=== PATIENT | male | born 1970 | race Caucasian/White ===

== ENCOUNTER 2017-11-30 18:45 | Emergency (ER) | payer OTHER, SELFPAY ==
[2017-11-30] MEDS: zolPIDEM TARTRATE 5 MG TAB PO ×2 (21:00)
== END 2017-11-30 21:02 | disposition home or self-care (01) ==
LOC: M ED 18:45
DX: Z76.0 Encounter for issue of repeat prescription (principal); G47.00 Insomnia, unspecified; Z79.899 Other long term (current) drug therapy; Z87.891 Personal history of nicotine dependence
CPT/HCPCS: 99283

== ENCOUNTER → 2019-12-29 | Outpatient (CLI) | payer BC, OTHER ==
[~2019-12-29] MED LIST: ZOLP10TA2 PO
== END ==
LOC: M LABSMTC 10:31
PROVIDERS: ATTEND Family Medicine
DX: Z11.59 Encounter for screening for other viral diseases (principal); Z20.828 Contact with and (suspected) exposure to other viral communicable diseases

== ENCOUNTER 2020-11-07 16:52 | Emergency (ER) | payer BC, OTHER ==
[~2020-11-07] VITALS: Ht 175.3 cm; Wt 111.4 kg
[~2020-11-07 16:52] MED LIST changes: +RALTEGRAVIR 400 MG TAB (ISENTRESS) PO SCH; +TRUVADA 200MG/300MG TABLET PO SCH
--- OUTSIDE RECORDS SUMMARY | 2020-11-07 16:57 | CCD ---
Author Author [facility] Address Unknown Phone Unavailable Care Team Providers Care Rn Testing Name Role Phone Chester Dewitt MD Unavailable Unavailable Chester Dewitt MD Unavailable Unavailable Chester Dewitt MD Unavailable Unavailable Chester Dewitt MD Unavailable Unavailable Chester Dewitt MD Unavailable Unavailable Chester Dewitt MD Unavailable Unavailable Chester Dewitt MD Unavailable Unavailable Chester Dewitt MD Unavailable Unavailable Chester Dewitt MD Unavailable Unavailable Chester Dewitt MD Unavailable Unavailable Chester Dewitt MD Unavailable Unavailable Chester Dewitt MD Unavailable Unavailable Chester Dewitt MD Unavailable Unavailable Chester Dewitt MD Unavailable Unavailable Chester Dewitt MD Unavailable Unavailable Chester Dewitt MD Unavailable Unavailable Chester Dewitt MD Unavailable Unavailable hCester Dewitt MD Unavailable Unavailable Chester Dewitt MD Unavailable Unavailable Chester Dewitt MD Unavailable Unavailable Chester Dewitt MD Unavailable Unavailable Chester Dewitt MD Unavailable Unavailable Chester Dewitt MD Unavailable Unavailable Chester Dewitt MD Unavailable Unavailable Chester Dewitt MD Unavailable Unavailable LyndaChester villeda MD Unavailable Unavailable LyndakerChester MD Unavailable Unavailable LyndaChester villeda MD Unavailable Unavailable LyndakerChester MD Unavailable Unavailable LyndakerChester MD Unavailable Unavailable LyndakerChester MD Unavailable Unavailable LyndaChester villeda MD Unavailable Unavailable LyndaChester villeda MD Unavailable Unavailable LyndaChester villeda MD Unavailable Unavailable LyndaChester villeda MD Unavailable Unavailable LyndakerChester MD Unavailable Unavailable LyndakerChester MD Unavailable Unavailable LyndaChester villeda MD Unavailable Unavailable LyndaChester villeda MD Unavailable Unavailable LyndaChester villeda MD Unavailable Unavailable LyndaChester villeda MD Unavailable Unavailable LyndaChester villeda MD Unavailable Unavailable LyndaChester villeda MD Unavailable Unavailable LyndaChester villeda MD Unavailable Unavailable LyndaChester villeda MD Unavailable Unavailable LyndaChester villeda MD Unavailable Unavailable LyndaChester villeda MD Unavailable Unavailable LyndaChester villeda MD Unavailable Unavailable LyndaChester villeda MD Unavailable Unavailable LyndaChester villeda MD Unavailable Unavailable LyndaChester villeda MD Unavailable Unavailable LyndaChester villeda MD Unavailable Unavailable LyndaChester villeda MD Unavailable Unavailable LyndaChester villeda MD Unavailable Unavailable LyndaChester villeda MD Unavailable Unavailable LyndaChester villeda MD Unavailable Unavailable LyndaChester villeda MD Unavailable Unavailable LyndaChester villeda MD Unavailable Unavailable LynChester roberts MD Unavailable Unavailable LynChester roberts MD Unavailable Unavailable LyndaChester villeda MD Unavailable Unavailable LyndaChester villeda MD Unavailable Unavailable LyndaChester villeda MD Unavailable Unavailable LyndaChester villeda MD Unavailable Unavailable LynChester roberts MD Unavailable Unavailable LynChester roberts MD Unavailable Unavailable LyndaChester villeda MD Unavailable Unavailable LyndaChester villeda MD Unavailable Unavailable LyndaChester villeda MD Unavailable Unavailable LyndaChester villeda MD Unavailable Unavailable LyndaChester villeda MD Unavailable Unavailable LyndaChester villeda MD Unavailable Unavailable LyndaChester villeda MD Unavailable Unavailable LyndaChester villeda MD Unavailable Unavailable LyndaChester villeda MD Unavailable Unavailable Lyndaker, Chester Boyd MD Unavailable Unavailable Lyndaker, Chester Boyd MD Unavailable Unavailable Lyndaker, Chester Boyd MD Unavailable Unavailable Lyndaker, Chester Boyd MD Unavailable Unavailable Lyndaker, Chester Boyd MD Unavailable Unavailable Lyndaker, Chester Boyd MD Unavailable Unavailable Lyndaker, Chester Boyd MD Unavailable Unavailable Lyndaker, Chester Boyd MD Unavailable Unavailable Lyndaker, Chester Boyd MD Unavailable Unavailable Lyndaker, Chester Boyd MD Unavailable Unavailable Lyndaker, Chester Boyd MD Unavailable Unavailable Lyndaker, Chester Boyd MD Unavailable Unavailable Lyndaker, Chester Boyd MD Unavailable Unavailable Lyndaker, Chester Boyd MD Unavailable Unavailable Lyndaker, Chester Boyd MD Unavailable Unavailable Lyndaker, Chester Boyd MD Unavailable Unavailable Chichi, [id number] MD Mack JOHNSON Unavailable Unavailable Chichi, [id number] MD Mack JOHNSON Unavailable Unavailable Chichi, [id number] MD Mack JOHNSON Unavailable Unavailable Brijesh, A Luly BATCH MIXER OPERATOR Unavailable Unavailable Brijesh, A Luly BATCH MIXER OPERATOR Unavailable Unavailable Brijesh, A Luly BATCH MIXER OPERATOR Unavailable Unavailable Brijesh, A Luly BATCH MIXER OPERATOR Unavailable Unavailable Brijesh, A Luly BATCH MIXER OPERATOR Unavailable Unavailable Brijesh, A Luly BATCH MIXER OPERATOR Unavailable Unavailable Brijesh, A Luly BATCH MIXER OPERATOR Unavailable Unavailable Brijesh, A Luly BATCH MIXER OPERATOR Unavailable Unavailable Brijesh, A Luly BATCH MIXER OPERATOR Unavailable Unavailable Brijesh, A Luly BATCH MIXER OPERATOR Unavailable Unavailable Brijesh, A Luly BATCH MIXER OPERATOR Unavailable Unavailable Brijesh, A Luly BATCH MIXER OPERATOR Unavailable Unavailable Brijesh, A Luly BATCH MIXER OPERATOR Unavailable Unavailable Brijesh, A Luly BATCH MIXER OPERATOR Unavailable Unavailable Brijesh, A Luly BATCH MIXER OPERATOR Unavailable Unavailable Brijesh, A Luly BATCH MIXER OPERATOR Unavailable Unavailable Brijesh, A Luly BATCH MIXER OPERATOR Unavailable Unavailable Brijesh, A Luly BATCH MIXER OPERATOR Unavailable Unavailable Brijesh, A Luly BATCH MIXER OPERATOR Unavailable Unavailable Brijesh, A Luly BATCH MIXER OPERATOR Unavailable Unavailable Brijesh, A Luly BATCH MIXER OPERATOR Unavailable Unavailable Brijesh, A Luly BATCH MIXER OPERATOR Unavailable Unavailable Brijesh, A Luly BATCH MIXER OPERATOR Unavailable Unavailable Brijesh, A Luly BATCH MIXER OPERATOR Unavailable Unavailable Brijesh, A Luly BATCH MIXER OPERATOR Unavailable Unavailable Brijesh, A Luly BATCH MIXER OPERATOR Unavailable Unavailable Brijesh, A Luly BATCH MIXER OPERATOR Unavailable Unavailable Brijesh, A Luly BATCH MIXER OPERATOR Unavailable Unavailable Brijesh, A Luly BATCH MIXER OPERATOR Unavailable Unavailable Brijesh, A Luly BATCH MIXER OPERATOR Unavailable Unavailable Brijesh, A Luly BATCH MIXER OPERATOR Unavailable Unavailable Brijesh, A Luly BATCH MIXER OPERATOR Unavailable Unavailable Brijesh, A Luly BATCH MIXER OPERATOR Unavailable Unavailable Brijesh, A Luly BATCH MIXER OPERATOR Unavailable Unavailable Brijesh, A Luly BATCH MIXER OPERATOR Unavailable Unavailable Brijesh, A Luly BATCH MIXER OPERATOR Unavailable Unavailable Brijesh, A Luly BATCH MIXER OPERATOR Unavailable Unavailable Brijesh, A Luly BATCH MIXER OPERATOR Unavailable Unavailable Brijesh, A Luly BATCH MIXER OPERATOR Unavailable Unavailable Brijesh, A Luly BATCH MIXER OPERATOR Unavailable Unavailable Brijesh, A Luly BATCH MIXER OPERATOR Unavailable Unavailable Brijesh, A Luly BATCH MIXER OPERATOR Unavailable Unavailable Brijesh, A Luly BATCH MIXER OPERATOR Unavailable Unavailable Brijesh, A Luly BATCH MIXER OPERATOR Unavailable Unavailable Brijesh, A Luly BATCH MIXER OPERATOR Unavailable Unavailable Brijesh, A Luly BATCH MIXER OPERATOR Unavailable Unavailable Brijesh, A Luly BATCH MIXER OPERATOR Unavailable Unavailable Brijesh, A Luly BATCH MIXER OPERATOR Unavailable Unavailable Brijesh, A Luly BATCH MIXER OPERATOR Unavailable Unavailable Brijesh, A Luly BATCH MIXER OPERATOR Unavailable Unavailable Brijesh, A Luly BATCH MIXER OPERATOR Unavailable Unavailable Brijesh, A Luly BATCH MIXER OPERATOR Unavailable Unavailable Brijesh, A Luly BATCH MIXER OPERATOR Unavailable Unavailable Brijesh, A Luly BATCH MIXER OPERATOR Unavailable Unavailable Brijesh, A Luly BATCH MIXER OPERATOR Unavailable Unavailable Brijesh, A Luly BATCH MIXER OPERATOR Unavailable Unavailable Brijesh, A Luly BATCH MIXER OPERATOR Unavailable Unavailable Brijesh, A Luly BATCH MIXER OPERATOR Unavailable Unavailable Brijesh, A Luly BATCH MIXER OPERATOR Unavailable Unavailable Brijesh, A Luly BATCH MIXER OPERATOR Unavailable Unavailable Brijesh, A Luly BATCH MIXER OPERATOR Unavailable Unavailable Brijesh, A Luly BATCH MIXER OPERATOR Unavailable Unavailable Brijesh, A Luly BATCH MIXER OPERATOR Unavailable Unavailable Brijesh, A Luly BATCH MIXER OPERATOR Unavailable Unavailable Brijesh, A Luly BATCH MIXER OPERATOR Unavailable Unavailable Brijesh, A Luly BATCH MIXER OPERATOR Unavailable Unavailable Brijesh, A Luly BATCH MIXER OPERATOR Unavailable Unavailable Brijesh, A Luly BATCH MIXER OPERATOR Unavailable Unavailable Brijesh, A Luly BATCH MIXER OPERATOR Unavailable Unavailable Brijesh, A Luly BATCH MIXER OPERATOR Unavailable Unavailable Brijesh, A Luly BATCH MIXER OPERATOR Unavailable Unavailable Brijesh, A Luly BATCH MIXER OPERATOR Unavailable Unavailable Brijesh, A Luly BATCH MIXER OPERATOR Unavailable Unavailable Brijesh, A Luly BATCH MIXER OPERATOR Unavailable Unavailable Brijesh, A Luly BATCH MIXER OPERATOR Unavailable Unavailable Brijesh, A Luly BATCH MIXER OPERATOR Unavailable Unavailable Brijesh, A Luly BATCH MIXER OPERATOR Unavailable Unavailable Brijesh, A Luly BATCH MIXER OPERATOR Unavailable Unavailable Brijesh, A Luly BATCH MIXER OPERATOR Unavailable Unavailable Brijesh, A Luly BATCH MIXER OPERATOR Unavailable Unavailable Brijesh, A Luly BATCH MIXER OPERATOR Unavailable Unavailable Brijesh, A Luly BATCH MIXER OPERATOR Unavailable Unavailable Brijesh, A Luly BATCH MIXER OPERATOR Unavailable Unavailable Brijesh, A Luly BATCH MIXER OPERATOR Unavailable Unavailable Brijesh, A Luly BATCH MIXER OPERATOR Unavailable Unavailable Brijesh, A Luly BATCH MIXER OPERATOR Unavailable Unavailable Brijesh, A Luly BATCH MIXER OPERATOR Unavailable Unavailable Brijesh, A Luly BATCH MIXER OPERATOR Unavailable Unavailable Marjorie, Chau Unavailable Unavailable Marjorie, Chau Unavailable Unavailable Marjorie, Chau Unavailable Unavailable Marjorie, Chau Unavailable Unavailable ESEMUEDE, Perez LACY MD Unavailable Unavailable ESEMUEDE, Perez LACY MD Unavailable Unavailable ESEMUEDE, Perez LACY MD Unavailable Unavailable Re-disclosure Warning The records that you are about to access may contain information from federally-assisted alcohol or drug abuse programs. If such information is present, then the following federally mandated warning applies: This information has been disclosed to you from records protected by federal confidentiality rules (42 CFR part 2). The federal rules prohibit you from making any further disclosure of this information unless further disclosure is expressly permitted by the written consent of the person to whom it pertains or as otherwise permitted by 42 CFR part 2. A general authorization for the release of medical or other information is NOT sufficient for this purpose. The Federal rules restrict any use of the information to criminally investigate or prosecute any alcohol or drug abuse patient.The records that you are about to access may contain highly sensitive health information, the redisclosure of which is protected by Article 27-F of the [place] Public Health law. If you continue you may have access to information: Regarding HIV / AIDS; Provided by facilities licensed or operated by the [facility] Office of Mental Health; or Provided by the [facility] Office for People With Developmental Disabilities. If such information is present, then the following [facility] mandated warning applies: This information has been disclosed to you from confidential records which are protected by state law. State law prohibits you from making any further disclosure of this information without the specific written consent of the person to whom it pertains, or as otherwise permitted by law. Any unauthorized further disclosure in violation of state law may result in a fine or correction sentence or both. A general authorization for the release of medical or other information is NOT sufficient authorization for further disc losure. Allergies and Adverse Reactions Type Description Substance Reaction Status Data Source(s ) Drug allergy No Known Drug Allergies No Known Drug Allergies [facility] Drug allergy Chantix Chantix Resolved [place] ([facility]) Drug allergy Chantix 0.5 MG Oral Tablet Chantix 0.5MG Oral Tablet Resolved [place] ([facility]) Drug allergy Chantix 0.5 MG Oral Tablet Chantix 0.5MG Oral Tablet Resolved [place] ([facility]) Drug allergy Chantix 0.5 MG Oral Tablet Chantix 0.5MG Oral Tablet Active [facility]) Encounters Encounter Providers Location Date Indications Data Source(s ) Preadmit Attender: Chau Amador 07/16/2020 07:30:00 AM EST K64.8/HEMORRHOIDECTOMY [id number] [facility] K64.8/HEMORRHOIDECTOMY [id number] Outpatient Attender: KOBI RODRIGUEZ MDReferrer: Luly JONES 07/05/2020 09:16:00 AM EDT - 07/05/2020 10:12:00 AM EDT [facility] Outpatient Attender: [id number] Mack Cadet MD 05/16/2020 07:17:00 AM EDT - 05/16/2020 11:45:00 AM EDT K62.[id number] [id number] Patient discharged. Outpatient Attender: [id number] Mack Cadet MD 05/14/2020 11 :22:00 AM EDT [facility] Outpatient Attender: [id number] Mack Cadet MDReferrer: Rosenda perez Brijesh [facility] 05/14/2020 08:47:00 AM EDT - 05/14/2020 09:12:00 AM EDT [facility] Outpatient Attender: [id number] Mack Cadet MDReferrer: Nayanavolodymyr Coley [facility] 04/12/2020 10:25:00 AM EDT - 04/12/2020 10:58:00 AM EDT [facility] Outpatient<td ID="encounterTypeDescripti onID2">followup</td><td>Luly Coley [facility]</td><td>[facility], [facility]</td><td>02/23/2020</td><td>9:49AM</td><td>10:23AM</td><td><content ID="encounterDiagnosisID2-0">Prediabetes</content>, <content ID="encounterDiagnosisID2-1">Hyperlipidemia</content>, <content ID="encounterDiagnosisID2-2">Impaired Fasting Glucose</content>, <content ID="encounterDiagnosisID2-3">Obesity</content></td> [facility] 02/23/2020 09:49:00 A M EDT - 02/23/2020 10:23:00 AM EDT Impaired Fasting GlucoseImpaired Fasting GlucoseObesityHyperlipidemiaPrediabetesObesityHyperlipidemiaPrediabetes [place] ([facility]) Impaired Fasting Glucose Impaired Fasting Glucose Obesity Hyperlipidemia Prediabetes Obesity Hyperlipidemia Prediabetes Outpatient<td ID="encounterTypeDescripti onID0">problem list and pmhx,</td><td>Luly DE LOS SANTOSP</td><td></td><td>05/31/2020</td><td>02/23/2020 8:12AM</td><td>02/23/2020 11:59PM</td><td></td> Attender: Luly JONES 020 08:12:00 AM EDT - 02/23/2020 11:59:00 PM EDT [place] ([facility]) Outpatient<td ID="encounterTypeDescripti onID1">[Patient Encounter]</td><td>Oliver Dewitt MD</td><td></td><td>05/27/2020</td><td>02/23/2020 7:56AM</td><td>02/23/2020 11:59PM</td><td></td> Attender: Oliver Dewitt MD 0 07:56:00 AM EDT - 02/23/2020 11:59:00 PM EDT [place] ([facility]) Outpatient Attender: Luly Coley BATCH MIXER OPERATOR 02/16/2020 11:43 :00 AM EDT E55.9 [facility] E55.9 Outpatient<td ID="encounterTypeDescripti onID3">new patient</td><td>Luly Carballo Brijesh [facility]</td><td>[facility]</td><td>02/16/2020</td><td>10:50AM</td><td>11:37AM</td><td><content ID="encounterDiagnosisID3-0">Obesity</content>, <content ID="encounterDiagnosisID3-1">Lumbago</content>, <content ID="encounterDiagnosisID3-2">Prediabetes</content>, <content ID="encounterDiagnosisID3-3">Hyperlipidemia</content>, <content ID="encounterDiagnosisID3-4">Arthritis</content>, <content ID="encounterDiagnosisID3-5">Arthralgia</content>, <content ID="encounterDiagnosisID3-6">Colon Screening</content>, <content ID="encounterDiagnosisID3-7">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</content></td> Attender: Luly Coley [facility], [facility] 02/16/2020 10:50:00 AM EDT - 02/16/2020 11:37:00 AM ED T 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Colon ScreeningArthritis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Colon ScreeningArthritis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Colon Screening ArthritisArthralgiaHyperlipidemiaPrediabetesLumbagoObesityArthralgiaHyperlipidem iaPrediabetesLumbagoObesityArthralgiaHyperlipidemiaPrediabetesLumbagoObesity [place] ([facility]) Bph W/o Urinary Obstruction W/ Other Low er Urinary Tract Sx Colon Screening Arthritis Bph W/o Urinary Obstruction W/ Other Low er Urinary Tract Sx Colon Screening Arthritis Bph W/o Urinary Obstruction W/ Other Low er Urinary Tract Sx Colon Screening Arthritis Arthralgia Hyperlipidemia Prediabetes Lumbago Obesity Arthralgia Hyperlipidemia Prediabetes Lumbago Obesity Arthralgia Hyperlipidemia Prediabetes Lumbago Obesity Outpatient<td ID="encounterTypeDescripti onID4">problem list and pmhx,</td><td>Luly Coley [facility]</td><td></td><td>01/27/2020</td><td>8:57AM</td><td>11:59PM</td><td></td> Attender: Luly Coley [facility] 01/27/2020 08:57:00 AM EDT - 01/27/2020 11:59:00 PM EDT [place] ([facility]) Medications Medication Brand Name Start Date Product Form Dose Route Admi nistrative Instructions Pharmacy Instructions Status Indications Reaction Description Data Source(s) 10 mg 10/31/2020 12:00:00 AM EST tablet 10 TAKE ONE TABLET BY MOUTH EVERY DAY AT BEDTIME, MAXIMUM DAILY DOSE = ONE TABLET TAKE ONE TABLET BY MOUTH EVERY DAY AT BEDTIME, MAXIMUM DAILY DOSE = ONE TABLET SOLD: 10/31/2020 [facility] 10 mg 09/02/2020 12:00:00 AM EST tablet 14 TAKE ONE TABLET BY MOUTH AT BEDTIME MAXIMUM DAILY DOSE = ONE TABLET TAKE ONE TABLET BY MOUTH AT BEDTIME MAXIMUM DAILY DOSE = ONE TABLET SOLD: 09/02/2020 [facility] Psyllium 14.2 MG/ML Oral Suspension Psyl lium Husk (Metamucil) 3.4 gram/5.4 gram powder Psyllium Husk (Metamucil) 3.4 gram/5.4 gram powder 10:00:24 AM EDT 1 TBS active [facility] Docusate Sodium 100 MG Oral Capsule Docusate Sodium (C olace) 100 mg capsule Docusate Sodium (Colace) 100 mg capsule 07/05/2020 10:00:06 AM EDT 10 0 MG active [facility] Omeprazole 20 MG Delayed Release Oral Ta blet Omeprazole Magnesium (Prilosec Otc) 20 mg Tablet,Delayed Release (Dr/Ec) Omeprazole Magnesium (Prilosec Otc) 20 m g Tablet,Delayed Release (Dr/Ec) 05/14/2020 02:52:36 PM EDT 20 MG active [facility] Omeprazole 20 MG Delayed Release Oral Ta blet Omeprazole Magnesium (Prilosec Otc) 20 mg Tablet,Delayed Release (Dr/Ec) Omeprazole Magnesium (Prilosec Otc) 20 m g Tablet,Delayed Release (Dr/Ec) 05/14/2020 02:52:36 PM EDT 20 MG active [facility] Chondroitin Sulfates 400 MG Oral Capsule Chondroitin S ulfate A Sodium Chondroitin Sulfate A Sodium 04/12/2020 10:40:38 AM EDT 400 MG active [facility] Chondroitin Sulfates 400 MG Oral Capsule Chondroitin S ulfate A Sodium Chondroitin Sulfate A Sodium 04/12/2020 10:40:38 AM EDT 400 MG completed [facility] Chondroitin Sulfates 400 MG Oral Capsule Chondroitin S ulfate A Sodium Chondroitin Sulfate A Sodium 04/12/2020 10:40:38 AM EDT 400 MG active [facility] Chondroitin Sulfates 400 MG Oral Capsule Chondroitin S ulfate A Sodium Chondroitin Sulfate A Sodium 04/12/2020 10:40:38 AM EDT 400 MG active [facility] l Multivitamin 04/12/2020 10:40:02 AM EDT 1 TAB comp leted [facility] Multivitamin 04/12/2020 10:40:02 AM EDT 1 TAB acti ve [facility] Multivitamin 04/12/2020 10:40:02 AM EDT 1 TAB acti ve [facility] Multivitamin 04/12/2020 10:40:02 AM EDT 1 TAB acti ve [facility] Apex-3 Fatty Acids (Fish Oil Concentrate) 1,000 mg capsule 04/12/2020 10:39:42 AM EDT 1000 MG completed [facility] Apex-3 Fatty Acids (Fish Oil Concentrate) 1,000 mg capsule 04/12/2020 10:39:42 AM EDT 1000 MG active [facility] Apex-3 Fatty Acids (Fish Oil Concentrate) 1,000 mg capsule 04/12/2020 10:39:42 AM EDT 1000 MG active [facility] Apex-3 Fatty Acids (Fish Oil Concentrate) 1,000 mg capsule 04/12/2020 10:39:42 AM EDT 1000 MG active [facility] EQL Fish Oil 1000 MG Oral Capsule EQL Fish Oil 1000 MG Oral Capsule 02/23/2020 12:00:00 AM EDT active EQL Fish Oil [place] ([facility]) Chondroitin Sulfates 400 MG Oral Capsule Chondroitin Sulfate 400 MG Oral Capsule Chondroitin Sulfate 400 MG Oral Capsule 02/23/2020 12:00:00 AM EDT active chondroitin sulfates 400 MG Oral Capsule [place] ([facility]) Daily Multivitamin Oral Capsule Daily Multivitamin Oral Caps ule 02/23/2020 12:00:00 AM EDT active Daily Mu ltivitamin [place] ([facility]) Zolpidem tartrate 10 MG Oral Tablet Zolpidem Tartrate 10 MG Oral Tablet Zolpidem Tartrate 10 MG Oral Tablet 02/12/2020 12:00:00 AM EDT active zolpidem tartrate 10 MG Oral Tablet [place] ([facility]) Insurance Providers Payer name Policy type / Coverage type Policy ID Covered libertarian ID Covered libertarian's relationship to parada Policy [place] Plan Information [employer] [place] P[place] 302/307 [id number] SP [id number] [facility] [id number] SP [id number] [employer] of [facility] Other 0 Self 0 U [id number] Self [id number] EXCELLUS H [id number] Self [id number] BC[employer] of [facility] Other 0 Self 0 BCBS of [facility] Other 0 Self 0 BCBS of [facility] Other 0 Self 0 'S ADMINISTRATION [id number] SP [id number] SELF PAY ONLY [facility] [id number] SP [id number] ACTIVE DUTY [id number] SP [id number] Problems, Conditions, and Diagnoses Code Display Name Description Problem Type Effective Dates Data Source(s) 268.9 Vitamin D Deficiency Vitamin D Deficiency Problem 01/27/2020 12:00:00 AM EDT [place] ([facility]) 278.00 Obesity Obesity Problem 01/27/2020 12:00:00 AM ED T [facility]) 724.2 Lumbago Lumbago Finding 01/27/2020 12:00:00 AM ED T [facility]) 719.49 Arthralgia Arthralgia Finding 01/27/2020 12:00:00 AM ED T [facility]) 780.52 Persistent Insomnia Persistent Insomnia Problem 0 01/27/2020 12:00:00 AM EDT [place] ([facility]) 272.4 Hyperlipidemia Hyperlipidemia Problem 01/27/2020 12:00: 00 AM EDT [place] ([facility]) [address]1950 Hemorrhoids Hemorrhoids Problem 01/27/2020 12:00:00 AM EDT [facility]) R73.03 Prediabetes Prediabetes Problem 01/27/2020 12:00:00 AM EDT [place] ([facility]) 268.9 Vitamin D Deficiency Vitamin D Deficiency Problem 01/27/2020 12:00:00 AM EDT [place] ([facility]) 278.00 Obesity Obesity Problem 01/27/2020 12:00:00 AM ED T [place] ([facility]) 724.2 Lumbago Lumbago Finding 01/27/2020 12:00:00 AM ED T [facility]) 719.49 Arthralgia Arthralgia Finding 01/27/2020 12:00:00 AM ED T [place] ([facility]) 780.52 Persistent Insomnia Persistent Insomnia Problem 0 01/27/2020 12:00:00 AM EDT [place] ([facility]) 272.4 Hyperlipidemia Hyperlipidemia Problem 01/27/2020 12:00: 00 AM EDT [place] ([facility]) 96394 Hemorrhoids Hemorrhoids Problem 01/27/2020 [facility] R73.03 Prediabetes Prediabetes Problem 01/27/2020 12:00:00 AM EDT [facility]AN[facility] ([facility]) 268.9 Vitamin D Deficiency Vitamin D Deficiency Problem 01/27[facility]2020 [facility] 69659 Obesity Obesity Problem 01/27/2020 12:00:00 AM ED T [facility]AN[facility] ([facility]) 724.2 Lumbago Lumbago Finding 01/27/2020 12:00:00 AM ED T [facility]) 719.49 Arthralgia Arthralgia Finding 01/27/2020 12:00:00 AM ED T [facility]) 780.52 Persistent Insomnia Persistent Insomnia Problem 0 01/27/2020 12:00:00 AM EDT [facility]ANH ([facility]) 203173 Hyperlipidemia Hyperlipidemia Problem 01/27/2020 12:00: 00 AM EDT [facility] ([facility]) 50669 Hemorrhoids Hemorrhoids Problem 01/27/2020 12:00:00 AM EDT [facility]) R73.03 Prediabetes Prediabetes Problem 01/27/2020 12:00:00 AM EDT [facility]) 268.9 Vitamin D Deficiency Vitamin D Deficiency Problem 01/27/2020 12:00:00 AM EDT [facility]) 37913 Obesity Obesity Problem 01/27/2020 12:00:00 AM ED T [place] ([facility]) 724.2 Lumbago Lumbago Finding 01/27/2020 12:00:00 AM ED T [place] ([facility]) 719.49 Arthralgia Arthralgia Finding 01/27/2020 12:00:00 AM ED T [facility]) 780.52 Persistent Insomnia Persistent Insomnia Problem 0 01/27/2020 12:00:00 AM EDT [facility]ANH ([facility]) 466985 Hyperlipidemia Hyperlipidemia Problem 01/27/2020 12:00: 00 AM EDT [facility]) 45780 Hemorrhoids Hemorrhoids Problem 01/27/2020 12:00:00 AM [facility]) R73.03 Prediabetes Prediabetes Problem 01/27/2020 12:00:00 AM [facility] ([facility]) Surgeries/Procedures Procedure Description Date Indications Data Source(s) Nucleic acid assay (procedure) 05/14/2020 12:00:00 AM [facility] Nucleic acid assay (procedure) 05/14/2020 12:00:00 AM [facility] TSH- Thyroid Stimulating Hormone TSH- Thyroid Stimulating Ho rmone 02/16/2020 12:00:00 AM [facility] ([facility]) Free T4- Free Thryoxine Free T4- Free Thryoxine 02/16/2020 12:00: 00 AM [facility] ([facility]) HgbA1C HgbA1C 02/16/2020 12:00:00 AM [facility] CMP-Complete Metabolic Profile CMP-Complete Metabolic Profil e 02/16/2020 12:00:00 AM [facility] ([facility]) Fasting Lipid Profile Fasting Lipid Profile 02/16/2020 12:00:00 AM [facility] ([facility]) Venipuncture (routine) Venipuncture (routine) 02/16/2020 12:00:00 A M [facility] ([facility]) Results ID Date Data Source [id number] 07/05/2020 09:17:00 AM [facility] Name: Susanne Roger : 1970 Age: 49 MR#: [id number] Admit Date: 07/05/20 Provider: Kobi Rodrgiuez MD Room #: Consulting Provider: Dictation Date: 07/05/20 Intake Vital Signs 07/05/20 09:22 Current Height 5 ft 9 in Current Weight 254 lb Weight Measurement Method Most recent on chart BMI 37.5 BP 130/80 Blood Pressure Location Lt brachial Position Sitting Pulse 70 Pulse Strength Normal Pulse Source Pulse Oximeter Temp 98.0 F Temp Source Oral Pulse Oximetry (%) 96 Oxygen Delivery Method room air Intake Visit Reasons: Hemorrhoids Power Supply Engineer Required: No Accompanied by: Is patient in pain?: No Allergies No Known Drug Allergies Allergy (Verified 05/16/20 07:38) Coronavirus Screening Screening Have you traveled outside of [facility] or [facility] in the last 14 days.: No Has patient experienced coronavirus symptoms: No PFSH Medical History Arthralgia History of hemorrhoids Hyperlipidemia Insomnia Lumbago Vitamin D deficiency Surgical History H/O foot surgery ( 1993) Family History Father No problems noted. Mother No problems noted. Social History Does the Patient have a Healthcare Proxy: No Does Patient have a DNR?: No Does Patient have a Living Will?: No Hx Recent Travel (where): No alcohol intake: never substance use type: does not use HPI Additional HPI HPI Details: 49y/o M s/p Hemorrhoids History of Present Illness 49y/o M s/p colonoscopy here to discuss hemorrhoids. His colonoscopy showed 4 adenomas and 1 hyperplastic polyp. He says he gets burning at the anus and irritation for which he uses multiple topical products. He gets occasional pain with BMs and sometimes blood. He denies a family hx of colon CA. Review of Systems Const All systems reviewed are unremarkable except as noted in HPI and below Eyes Reports system reviewed and no additional complaints, except as documented and Reports requires corrective lenses ENT Reports system reviewed and no additional complaints, except as documented Card Reports system reviewed and no additional complaints, except as documented Resp Reports system reviewed and no additional complaints, except as documented GI Reports system reviewed and no additional complaints, except as documented, Reports hematochezia andReports heartburn Reports system reviewed and no additional complaints, except as documented Musc Reports system reviewed and no additional complaints, except as documented Skin/Breast Reports system reviewed and no additional complaints, except as do cumented Neuro Reports system reviewed and no additional complaints, except as documented Psych Reports system reviewed and no additional complaints, except as documented Endo Reports system reviewed and no additional complaints, except as documented Mane/Lymph Reports system reviewed and no additional complaints, except as documented Aller/Immun Reports system reviewed and no additional complaints, except as documented Exam Const General: cooperative, healthy appearing, no acute distress, well developed and well groomed Nutritional Appearance: well nourished Orientation: alert, awake and oriented x3 [facility] Head: normal to inspection, normocephalic, atraumatic and no scalp tenderness Ears: hearing grossly normal bilaterally, external ears normal, TM's normal bilaterally, EAC's normal and no periauricular adenopathy General nose exam: external nose normal, nares normal, no nasal polyps, septum normal and no nasal discharge Face and sinus: normal facial exam and sinuses nontender Mouth: oral mucosae normal, lip normal, tongue normal, oropharynx normal and moist mucous membranes Throat: posterior oropharynx normal Eyes General: appearance normal, both eyes and all related structures Periorbital: periorbital findings normal Eyelids: eyelids normal Conjunctivae: conjunctivae normal Sclera: sclerae normal Pupils: PERRL EOM: EOM intact bilaterally Direct ophthalmoscopy: normal light reflex Neck Neck: normal visual inspection, full ROM, no lymphadenopathy, supple and no JVD present Neck mass: No Thyroid: thyroid normal Carotids: normal carotid upstroke Chest Chest: normal inspection of the chest Breast/Axilla Inspection: normal inspection of the breasts and normal inspection of the axillae Breast/Axilla Palpation: normal palpation of the breasts and no axillary lymphadenopathy Resp Effort Inspection: normal respiratory effort Auscultation: clear to auscultation bilaterally Percussion: percussion normal Cardio Jugular venous pressure: no JVD Palpation: normal PMI Rate: regular rate Rhythm: regular rhythm Heart Sounds: S1 normal and S2 normal Pulses: normal peripheral pulses GI Inspection: Yes normal to inspection and No abdominal distension Palpation: soft and nontender Rectal exam - Male: Yes normal sphincter tone, No fissure, Yes hemorrhoids and Yes other (Anoscopy-rt anterior mixed hemorrhoid, mild hyperemia) Musc Cervical Spine: normal cervical lordosis and cervical ROM normal Thoracic/Lumbar Spine: thoracic and lumbar spine normal to inspection, thoraco-lumbar ROM normal andstraight leg raise negative bilaterally Pelvis: no pain with anterior-posterior compression and no pain with lateral compression Skin Lesions: no lesions Rashes: no rashes Hair: normal Nails: normal Neuro General: patient alert, patient awake, patient oriented x3, gait normal, moves all extremities and normal light touch, pain and propioception Cranial Nerves: CN's II-XII intact bilaterally Cognition: normal cognition Speech: speech normal Gait: normal gait Motor: muscle tone normal throughout and strength 5/5 throughout Sensory Exam: no sensory deficits noted Extrem General: normal to inspection, full ROM, capillary refill normal, no clubbing, cyanosis or edema andno muscle atrophy Psych Appearance: grossly normal and well kempt Mental Status: mental status grossly normal Speech and Movement: speech and movement normal Affect: normal affect Attitude: cooperative Thought Process: normal Thought Content: normal Insight: insight good Judgment: judgment good Assessment Plan Assessment Plan (1) Hemorrhoids: Code(s): K64.9 - Unspecified hemorrhoids Plan - KOBI RODRIGUEZ MD: A- hemorrhoids, mixed P-hemorrhoidectomy when available -colace -metamucil - sitz baths -told pt to stop putting multiple topical creams in the area Orders Other Medications: New: docusate sodium (Colace) 100 mg PO BID 20 caps 0RF psyllium husk (Metamucil) mix into at least 8 oz of water or juice before administering 1 tbsp PO QDAY 330 grams 0RF Dictated by: <Electronically signed by KOBI RODRIGUEZ MD> KOBI RODRIGUEZ MD 07/05/20 1020 KOBI RODRIGUEZ MD SIGNATURE DA Report Cosigners: D: KIARRA 07/05/20916 T: ISAIAH 07/05/20916 CC: Name Value Range Interpretation Code Description Data [place] rce(s) Supporting Document(s) ID Date Data Source [id number] 05/16/2020 10:42:00 AM EDT [facility] Name: Susanne Roger : 1970 Age: 49 MR#: [id number] Admit Date: 05/16/20 Provider: Mack Cadet MD Room #: Consulting Provider: Dictation Date: 05/16/20 Operative Note Operative Report Date of Service Date of service:: 05/16/20 Operative Report Surgeon: Mack Cadet MD MPH Anesthesiologist(s): Butch Gurrola MD Anesthesia Type: MAC Pre-Operative Diagnosis: Rectal bleeding Post-Operative Diagnosis: same as pre-op plus (Multiple polyps - cecal, splenic flexure x 2, sigmoidcolon, rectal polyps x 3) Operative Treatments Specimens: Specimens removed: (cecal polyp subcm x1, splenic polyp x2, sigmoid colon polyp x4, rectal polyps x 3(subcm)) Operative Narrative Narrative: The patient was then turned into the left lateral decubitus position. After achieving adequate sedation for the procedure, flexible colonoscope was inserted into the patient's rectum, negotiated through the rectum, sigmoid, left colon, transverse colon, and right colons. Bowel prep was noted to be fair. The cecum was clearly identified by lime's foot and appendiceal orifice. During the passage of the colonoscope, mucosa was examined and appeared normal. The scope was withdrawn over 6 minutes according to the ASGE guidelines. There were multiple polyps as noted below. Digitalrectal exam was performed, revealing mild hemorrhoids. Polyps removed: Cecal polyp x 1 (sub cm) removed with cold forceps Splenic polyp x 2 (one 1.5 cm and one subcm) - one larger than 1 cm removed with hot snare and one subcm removed with cold forcep. Sigmoid colon polyp x 1 ( 1cm) removed with hot snare Rectal polyps x 3 (subcm) removed with cold forceps Assessment Plan A P Free Text/Narrative :: Fu pathology for the polyps. Screening colonoscopy fu interval will be determined from the pathology. Dictated by: <Electronically signed by Mack Cadet > Mack Cadet 05/16/20 1048 Mack Cadet SIGNATURE DA Report Cosigners: D: JULIÁN 05/16/20 1042 T: JULIÁN 05/16/20 1042 CC: Name Value Range Interpretation Code Description Data [place] rce(s) Supporting Document(s) ID Date Data Source [id number] 05/23/2020 07:08:00 AM EDT [facility] PATH SPEC #:: [id number] Name Value Range Interpretation Code Description Data [place] rce(s) Supporting Document(s) Pathology studies (set) See scanned report [facility] ID Date Data Source [id number] 05/14/2020 12:52:00 PM EDT [facility] PRE OPTHIS RP PANEL TESTS FOR SA RS-CoV-2,(COVID-19)FilmArray Respiratory Panel is a Multiplexed NAAT-PCR testNORMAL VALUE FOR ALL 20 PATHOGENS IS "NOT DETECTED".The FilmArray RP panel detects Influenza A H1,H3 [id number] H1 viruses,Influenza B virus, Respiratory syncytialvirus, Human metapneumovirus,Parainfluenza virus 1,2,3, and4, Adenovirus,Rhino/Enterovirus,Coronavirus HKU 1, Nl63,OC43, and 229E,Bordetella pertussis, Bordetellaparapertussis, Mycoplasma pneumoniae and Chlamydiapneumoniae, SARS-CoV-2 (COVID 19).THIS TEST HAS NOT BEEN EVALUATED FOR USE WITH SPECIMENSOTHER THAN NASOPHARYNGEAL SWAB SPECIMENS.THE PERFORMANCE OF THIS TEST HAS NOT BEEN ESTABLISHED FORPATIENTS WITHOUT SIGNS AND SYMPTOMS OF RESPIRATORYINFECTION.RESULTS FROM THIS TEST MUST BE CORRELATED WITH CLINICAL HISTORY, EPIDEMIOLOGICAL DATA , AND OTHER DATA AVAILABLE TOTHE CLINICIAN EVALUATING THE PATIENT.THE PERFORMANCE OF THE FilmARRAY RP HAS NOT BEEN ESTABLISHEDIN INDIVIDUALS WHO RECEIVED INFLUENZA VACCINE. RECENTADMINISTRATION OF A NASAL INFLUENZA VACCINE MAY CAUSE AFALSE POSITIVE RESULT FOR INFLUENZA A AND/OR B.NEGATIVE RESULTS SHOULD NOT BE USED THE SOLE BASIS FORDIAGNOSIS, TREATMENT, OR OTHER MANAGEMENT DECISIONS.NEGATIVE RESULTS IN THE SETTING OF A RESPIRATORY ILLNESSMAYBE DUE TO INFECTION WITH PATHOGENS THAT ARE NOT DETECTEDBY THIS TEST OR LOWER RESPIRATORY TRACT INFECTION THAT ISNOT DETECTED BY A NASOPHARYNGEAL SWAB SPECIMEN.No Organisms Detected Name Value Range Interpretation Code Description Data [place] rce(s) Supporting Document(s) ID Date Data Source [id number] 05/14/2020 08:49:00 AM EDT [facility] Name: SUSANNE ROGER : 1970 Age: 49 MR#: [id number] Admit Date: 05/14/20 Provider: Mack Cadet MD Room #: Consulting Provider: Dictation Date: 05/14/20 Intake Vital Signs 3 05/14/20 08:50 Current Height 5 ft 9 in Current Weight 250 lb Weight Measurement Method Most recent on chart BMI 36.9 BP 120/72 Blood Pressure Location Rt brachial Position Sitting Pulse 93 Pulse Strength Normal Pulse Source Pulse Oximeter Temp 98.0 F Temp Source Oral Pulse Oximetry (%) 98 Oxygen Delivery Method room air Intake Visit Reasons: Pre-operative H P Nurse Note: preop update colonoscopy 05/16/2020 Power Supply Engineer Required: No Is patient in pain?: No Allergies No Known Drug Allergies Allergy (Unverified 05/14/20 09:35) Coronavirus Screening Screening Have you traveled outside of [facility] or [facility] in the last 14 days.: No Has patient experienced coronavirus symptoms: No PFSH Medical History Arthralgia History of hemorrhoids Hyperlipidemia Insomnia Lumbago Vitamin D deficiency Surgical History H/O foot surgery ( 1993) Family History Father No problems noted. Mother No problems noted. Social History Does the Patient have a Healthcare Proxy: No Does Patient have a DNR?: No Does Patient have a Living Will?: No alcohol intake: never substance use type: does not use HPI Additional HPI HPI Details: 49 yoM who is scheduled for colonoscopy for rectal bleeding. This is scheduled for May 16. He has had no changes in health or new medications. Review of Systems Const All systems reviewed are unremarkable except as noted in HPI and below Eyes Reports system reviewed and no additional complaints, except as documented and Reports requires corrective lenses ENT Reports system reviewed and no additional complaints, except as documented Card Reports system reviewed and no additional complaints, except as documented Resp Reports system reviewed and no additional complaints, except as documented GI Reports system reviewed and no additional complaints, except as documented Reports system reviewed and no additional complaints, except as documented Musc Reports system reviewed and no additional complaints, except as documented Skin/Breast Reports system reviewed and no additional complaints, except as documented Neuro Reports system reviewed and no additional complaints, except as documented Psych Reports system reviewed and no additional complaints, except as documented Endo Reports system reviewed and no additional complaints, except as documented Mane/Lymph Reports system reviewed and no additional complaints, except as documented Aller/Immun Reports system reviewed and no additional complaints, except as documented Exam Const General: cooperative, healthy appearing, no acute distress, well developed and well groomed Nutritional Appearance: well nourished Orientation: alert, awake and oriented x3 [facility] Head: normal to inspection, normocephalic, atraumatic and no scalp tenderness Ears: hearing grossly normal bilaterally, external ears normal, TM's normal bilaterally, EAC's normal and no periauricular adenopathy General nose exam: external nose normal, nares normal, no nasal polyps, septum normal and no nasal discharge Face and sinus: normal facial exam and sinuses nontender Mouth: oral mucosae normal, lip normal, tongue normal, oropharynx normal and moist mucous membranes Throat: posterior oropharynx normal Eyes General: appearance normal, both eyes and all related structures Periorbital: periorbital findings normal Eyelids: eyelids normal Conjunctivae: conjunctivae normal Sclera: sclerae normal Pupils: PERRL EOM: EOM intact bilaterally Direct ophthalmoscopy: normal light reflex Neck Neck: normal visual inspection, full ROM, no lymphadenopathy, supple and no JVD present Neck mass: No Thyroid: thyroid normal Carotids: normal carotid upstroke Resp Effort Inspection: normal respiratory effort Auscultation: clear to auscultation bilaterally Percussion: percussion normal Cardio Jugular venous pressure: no JVD Palpation: normal PMI Rate: regular rate Rhythm: regular rhythm Heart Sounds: S1 normal and S2 normal Pulses: normal peripheral pulses GI Inspection: Yes normal to inspection Palpation: soft, no hepatosplenomegaly, no aortic enlargement and nontender Percussion: normal to percussion Auscultation: normal bowel sounds Musc Cervical Spine: normal cervical lordosis and cervical ROM normal Thoracic/Lumbar Spine: thoracic and lumbar spine normal to inspection, thoraco-lumbar ROM normal andstraight leg raise negative bilaterally Pelvis: no pain with anterior-posterior compression and no pain with lateral compression Skin Lesions: no lesions Rashes: no rashes Hair: normal Nails: normal Neuro General: patient alert, patient awake, patient oriented x3, gait normal, moves all extremities and normal light touch, pain and propioception Cranial Nerves: CN's II-XII intact bilaterally Cognition: normal cognition Speech: speech normal Gait: normal gait Motor: muscle tone normal throughout and strength 5/5 throughout Sensory Exam: no sensory deficits noted Extrem General: normal to inspection, full ROM, capillary refill normal, no clubbing, cyanosis or edema andno muscle atrophy Psych Appearance: grossly normal and well kempt Mental Status: mental status grossly normal Speech and Movement: speech and movement normal Mood: congruent mood Affect: normal affect Attitude: cooperative Thought Process: normal Thought Content: normal Insight: insight good Judgment: judgment good Assessment Plan Assessment Plan (1) Pre-Operative Examination: Code(s): Z01.818 - Encounter for other preprocedural examination Plan - Mack Silvaon: 49 yoM who is scheduled for colonoscopy for rectal bleeding. This is scheduled for May 16. He has had no changes in health or new medications. -Planning for colonoscopy on May 16. Discussed risks and procedure again. Risks of bleeding and perforation were discussed, consent obtained and placed in the chart. Dictated by: <Electronically signed by Mack Cadet > Mack Cadet 05/14/20 0938 Mack Cadet SIGNATURE DA Report Cosigners: D: JULIÁN 05/14/20 0849 T: ISAIAH 05/14/20 0849 CC: Name Value Range Interpretation Code Description Data [place] rce(s) Supporting Document(s) ID Date Data Source [id number] 04/12/2020 10:31:00 AM EDT [facility] Name: Susanne Roger : 1970 Age: 49 MR#: [id number] Admit Date: 04/12/20 Provider: Mack Cadet MD Room #: Consulting Provider: Dictation Date: 04/12/20 Intake Vital Signs 3 04/12/20 10:31 Current Height 5 ft 9 in Current Weight 250 lb Weight Measurement Method Stated by Patient BMI 36.9 BP 130/88 Blood Pressure Location Lt brachial Position Sitting Respiration 18 Pulse 68 Pulse Strength Normal Pulse Source Pulse Oximeter Temp 98.0 F Temp Source Oral Pulse Oximetry (%) 98 Oxygen Delivery Method room air Intake Visit Reasons: Hemorrhoids Nurse Note: Patient has issues with hemorrhoids [id number]. He has never had a colonoscopy. Power Supply Engineer Required: No Accompanied by: Self / Same as Patient Is patient in pain?: No Allergies No Known Drug Allergies Allergy (Unverified 04/12/20 11:01) Coronavirus Screening Screening Have you traveled outside of [facility] or [facility] in the last 14 days.: No Has patient experienced coronavirus symptoms: No PFSH Medical History (Updated 04/12/20 @ 11:05 by Mack Cadet) Arthralgia History of hemorrhoids Hyperlipidemia Insomnia Lumbago Vitamin D deficiency Surgical History H/O foot surgery ( 1993) Family History Father No problems noted. Mother No problems noted. Social History (Updated 04/12/20 @ 10:35 by Angelita Azul) Does the Patient have a Healthcare Proxy: No Does Patient have a DNR?: No Does Patient have a Living Will?: No alcohol intake: never substance use type: does not use HPI Additional HPI HPI Details: 49 yoM with hx of rectal bleeding and known hemorrhoids that he has noticed since about 10 years ago. He uses hemorrhoidal cream and warm tub water at times. He is increasingly bothered by it and wants to address it. He also has never had a colonsocopy in the past. Hemorrhoids History of Present Illness Current symptoms: Reports diarrhea Review of Systems Const All systems reviewed are unremarkable except as noted in HPI and below Reports weight gain Eyes Reports system reviewed and no additional complaints, except as documented and Reports requires corrective lenses ENT Reports system reviewed and no additional complaints, except as documented and Reports tinnitus Card Reports system reviewed and no additional complaints, except as documented Resp Reports system reviewed and no additional complaints, except as documented GI Reports system reviewed and no additional complaints, except as documented and Reports diarrhea Reports system reviewed and no additional complaints, except as documented Musc Reports system reviewed and no additional complaints, except as documented Skin/Breast Reports system reviewed and no additional complaints, except as documented Neuro Reports system reviewed and no additional complaints, except as documented Psych Reports system reviewed and no additional complaints, except as documented Endo Reports system reviewed and no additional complaints, except as documented H kevin/Lymph Reports system reviewed and no additional complaints, except as documented Aller/Immun Reports system reviewed and no additional complaints, except as documented Exam Const General: cooperative, healthy appearing, no acute distress, well developed and well groomed Nutritional Appearance: well nourished Orientation: alert, awake and oriented x3 [facility] Head: normal to inspection, normocephalic, atraumatic and no scalp tenderness Ears: hearing grossly normal bilaterally, external ears normal, TM's normal bilaterally, EAC's normal and no periauricular adenopathy General nose exam: external nose normal, nares normal, no nasal polyps, septum normal and no nasal discharge Face and sinus: normal facial exam and sinuses nontender Mouth: oral mucosae normal, lip normal, tongue normal, oropharynx normal and moist mucous membranes Throat: posterior oropharynx normal Eyes General: appearance normal, both eyes and all related structures Periorbital: periorbital findings normal Eyelids: eyelids normal Conjunctivae: conjunctivae normal Sclera: sclerae normal Pupils: PERRL EOM: EOM intact bilaterally Direct ophthalmoscopy: normal light reflex Neck Neck: normal visual inspection, full ROM, no lymphadenopathy, supple and no JVD present Neck mass: No Thyroid: thyroid normal Carotids: normal carotid upstroke Resp Effort Inspection: normal respiratory effort Auscultation: clear to auscultation bilaterally Percussion: percussion normal Cardio Jugular venous pressure: no JVD Palpation: normal PMI Rate: regular rate Rhythm: regular rhythm Heart Sounds: S1 normal and S2 normal Pulses: normal peripheral pulses GI Inspection: Yes normal to inspection Palpation: soft, no hepatosplenomegaly, no aortic enlargement and nontender Percussion: normal to percussion Auscultation: normal bowel sounds Musc Cervical Spine: normal cervical lordosis and cervical ROM normal Thoracic/Lumbar Spine: thoracic and lumbar spine normal to inspection, thoraco-lumbar ROM normal andstraight leg raise negative bilaterally Pelvis: no pain with anterior-posterior compression and no pain with lateral compression Skin Lesions: no lesions Rashes: no rashes Hair: normal Nails: normal Neuro General: patient alert, patient awake, patient oriented x3, gait normal, moves all extremities and normal light touch, pain and propioception Cranial Nerves: CN's II-XII intact bilaterally Cognition: normal cognition Speech: speech normal Gait: normal gait Motor: muscle tone normal throughout and strength 5/5 throughout Sensory Exam: no sensory deficits noted Extrem General: normal to inspection, full ROM, capillary refill normal, no clubbing, cyanosis or edema andno muscle atrophy Psych Appearance: grossly normal and well kempt Mental Status: mental status grossly normal Speech and Movement: speech and movement normal Mood: congruent mood Affect: normal affect Attitude: cooperative Thought Process: normal Thought Content: normal Insight: insight good Judgment: judgment good Assessment Plan Assessment Plan (1) Rectal bleeding: Status: Acute Code(s): K62.5 - Hemorrhage of anus and rectum SNOMED Code(s): 26604984 Category: Medical Plan - Mack Cadet: 49 yoM with hx of rectal bleeding and known hemorrhoids that he has noticed since about 10 years ago. He uses hemorrhoidal cream and warm tub water at times. He is increasingly bothered by it andwants to address it. He also has never had a colonoscopy in the past. -Will plan for colonoscopy first followed by hemorrhoidectomy if there is no other findings in the colonoscopy. Discussed risks of bleeding and perforation, he understands and wishes to proceed. Dictated by: <Electronically signed by Mack Cadet > Mack Cadet 04/12/20 1108 Mack Cadet SIGNATURE DA Report Cosigners: D: JULINÁ 04/12/20 1031 T: CHUCKY 04/12/20 1031 CC: Name Value Range Interpretation Code Description Data [place] rce(s) Supporting Document(s) ID Date Data Source [id number] 02/17/2020 08:08:00 AM EDT [facility] Name Value Range Interpretation Code Description Data [place] rce(s) Supporting Document(s) Insulin 19.7 u[iU]/mL 2.6-24.9 [facility] Performed at: [facility] [place] [address] [id number] Director: Tami Nettles MD, Phone: [phone] ID Date Data Source [id number] 02[facility]16/2020 [facility] or follow[facility]up test?: INIT IAL Name Value Range Interpretation Code Description Data [place] rce(s) Supporting Document(s) Prostate specific Ag [Mass/volume] in Serum or Plasma 0.91 ng/mL 0.0- 4.0 N [facility] THIS ASSAY WAS PERFORMED [facility] [place] [facility] CHEMILUMINOMETRIC TECHNOLOGY.THE PSA IS NOT AN ABSOLUTE TEST FOR MALIGNANCY. IT SHOULD BEUSED IN CONJUNCTION WITH INFORMATION AVAILABLE FROM THECLINICAL EVALUATION AND OTHER DIAGNOSTIC PROCEDURES.VALUES OBTAINED WITH DIFFERENT ASSAY METHODS CANNOT BE USEDINTERCHANGEABLY. ID Date Data Source [id number] 02/17/2020 08:08:00 AM EDT [facility] Initial, repeat or follow-up test?: INIT IAL Name Value Range Interpretation Code Description Data [place] rce(s) Supporting Document(s) 25-Hydroxyvitamin D2+25-Hydroxyvitamin D3 [Mass/volume ] in Serum or Plasma 37.9 ng/mL 30.0-100.0 [facility] Vitamin D deficiency has been defined by the Story ofMedicine and an Endocrine Society practice guideline as alevel of serum 25-OH vitamin D less than 20 ng/mL (1,2).The Endocrine Society went on to further define vitamin Dinsufficiency as a level between 21 and 29 ng/mL (2).1. IOM (Story of Medicine). 2010. Dietary reference intakes for calcium and D. [place]: The National Academies Press.2. Carmelina MF, Ankur NC, Brooks DÍAZ, et al. Evaluation, treatment, and prevention of vitamin D deficiency: an Endocrine Society clinical practice guideline. JCEM. 2010; 96(7):1911- 30.Performed at: RN - [facility] [address] [id number] Director: Tami Nettles MD, Phone: [phone] ID Date Data Source [id number] 02/16/2020 11:43:00 [facility] Name Value Range Interpretation Code Description Data [place] rce(s) Supporting Document(s) TSH 1.548 uIu/mL TSH [place] ([facility]) Note: Responsible Observer: KM ID Date Data Source [id number] 02/16/2020 11:43:00 AM EDT [place] ([facility]) Name Value Range Interpretation Code Description Data [place] rce(s) Supporting Document(s) FREE T4 0.83 ng/dl FREE T4 [place] ([facility]) Note: Responsible Observer: KM ID Date Data Source [id number] 02/16/2020 11:43:00 AM EDT [place] ([facility]) Name Value Range Interpretation Code Description Data [place] rce(s) Supporting Document(s) Hemoglobin A1c/Hemoglobin.total in Blood 5.8 na Hgba1c [place] ([facility]) Note: Responsible Observer: KM ID Date Data Source [id number] 02/16/2020 11:43:00 AM EDT [place] ([facility]) Name Value Range Interpretation Code Description Data [place] rce(s) Supporting Document(s) Triglycerides 134 mg/dl Triglycerides [place] ([facility]) Note: Responsible Observer: KM Cholesterol [Moles/volume] in Pericardial fluid 244 mg/dl Above high normal Cholesterol [place] ([facility]) Note: Responsible Observer: KM Dir. LDL 165 mg/dl Above high normal Dir. LDL [facility] ([facility]) Note: Responsible Observer: KM HDL 44 mg/dl HDL [place] ([facility]) Note: Responsible Observer: KM ID Date Data Source [id number] 02/16/2020 11:43:00 AM EDT [place] ([facility]) Name Value Range Interpretation Code Description Data [place] rce(s) Supporting Document(s) Albumin [Mass/volume] in Blood by Bromocresol purple ( BCP) dye binding method 4.6 g/dl Albumin [place] ([facility]) Note: Responsible Observer: KM AST 15 IU/L AST [place] ([facility]) Note: Responsible Observer: KM Alkaline Phos 94 IU/L Alkaline Phos [place] ([facility]) Note: Responsible Observer: KM Urea nitrogen [Moles/volume] in Blood 15 mg/dl Urea Nitrogen [place] ([facility]) Note: Responsible Observer: KM ALT 23 IU/L ALT [place] ([facility]) Note: Responsible Observer: KM Chloride [Moles/volume] in Serum, Plasma or Blood 105 mmol/L Chloride [place] ([facility]) Note: Responsible Observer: KM Calcium [Moles/volume] in Urine collected for unspecified durati on 8.7 mg/dl Calcium [facility] ([facility]) Note: Responsible Observer: KM CO2 23 mmol/L CO2 [facility] ([facility]) Note: Responsible Observer: KM EGFR - AfricanAm > 60 N/A EGFR - AfricanAm [facility]) Note: Responsible Observer: KM EGFR - Non AF AM > 60 N/A EGFR - Non AF AM [facility] ([facility]) Note: Responsible Observer: KM Creatinine [Moles/volume] in Vitreous fluid 1.1 mg/dl Creatinine [place] ([facility]) Note: Responsible Observer: KM Glucose [Mass/volume] in Urine collected for unspecified duratio n 114 mg/dl Above high normal Glucose [place] ([facility]) Note: Responsible Observer: KM Potassium [Mass/volume] in Blood 3.8 mmol/L Pot assium [facility] ([facility]) Note: Responsible Observer: KM Sodium [Moles/volume] in Serum, Plasma or Blood 138 mmol/L Sodium [place] ([facility]) Note: Responsible Observer: KM Total Protein 7.1 g/dl Total Protein [place] ([facility]) Note: Responsible Observer: KM Total Bilirubin 0.5 mg/dl [facility] Note: Responsible Observer: KM ID Date Data Source [id number] 12/29/2019 10:30:00 AM EDT [facility] Name Value Range Interpretation Code Description Data [place] rce(s) Supporting Document(s) SARS CORONAVIRUS 2 RNA [facility] This lab was ordered by [facility] and reported by [facility]. Procedure Social History Code Duration Value Status Description Data Source(s ) 07/05/2020 10:02:00 AM EDT Jun 2016 completed Jun 2016 [facility] 07/05/2020 10:02:00 AM EDT No completed No [facility] 05/14/2020 02:55:00 PM EDT Former smoker completed Former smoker [facility] Smoking 05/14/2020 02:55:00 PM EDT Former smoker completed Former smoker [facility] 05/14/2020 02:55:00 PM EDT No completed No [facility] 05/14/2020 02:55:00 PM EDT Former smoker completed Former smoker [facility] Smoking 05/14/2020 02:55:00 PM EDT Former smoker completed Former smoker [facility] Smoking 04/12/2020 10:35:00 AM EDT Never smoker completed Never s shannonker [facility] Smoking 04/12/2020 10:35:00 AM EDT Never smoker completed Never s cachristiana [facility] 03/25/2020 08:35:00 AM EDT Jun 2016 completed Jun 2016 [facility] 03/25/2020 08:35:00 AM EDT Jun 2016 completed Jun 2016 [facility] 03/25/2020 08:35:00 AM EDT Jun 2016 completed Jun 2016 [facility] Vital Signs ID Date Data Source UNK Name Value Range Interpretation Code Description Data Source(s) Body surface area Derived from formula 2.30 m2 2.30 m2 [place] ([facility]) Body mass index (BMI) [Ratio] 37.0 kg/m2 37.0 k g/m2 [place] ([facility]) Body weight 254 [lb_av] 254 [lb_av] [place] ([facility]) Body height 69.5 [in_i] 69.5 [in_i] [place] ([facility]) Respiratory rate 18 /min 18 /min [place] ([place] [facility] [facility]) Heart rate 72 /min 72 /min [place] ([facility] [employer] [facility]) Diastolic blood pressure 72 mm[Hg] 72 mm[Hg] [place] ([facility]) Systolic blood pressure 120 mm[Hg] 120 mm[Hg] G REENWAY ([facility]) Body surface area Derived from formula 2.30 m2 2.30 m2 [place] ([facility]) Body mass index (BMI) [Ratio] 37.0 kg/m2 37.0 k g/m2 [facility]) Body weight 254 [lb_av] 254 [lb_av] [place] ([facility]) Body height 69.5 [in_i] 69.5 [in_i] [place] ([facility]) Respiratory rate 18 /min 18 /min [place] ([place] [employer] [facility]) Heart rate 78 /min 78 /min [place] ([facility] [employer] [facility]) Diastolic blood pressure 84 mm[Hg] 84 mm[Hg] [place] ([facility]) Systolic blood pressure 120 mm[Hg] 120 mm[Hg] Romario BAUTISTA ([facility])
[2020-11-07] MEDS ORDERED: BOOSTRIX/ADACEL VACCINE (DIPHTH/PERTUSS/ACELL/TETANUS) 0.5ML SYR IM ONE (17:25)
[2020-11-07] MEDS ORDERED: EXPOSURE KIT-ADULT 7 DAY SUPPLY PO ONE (17:25)
[2020-11-07] MEDS ORDERED: RALT40TA PO (17:38)
[2020-11-07] MEDS ORDERED: TRUVTAB PO (17:38)
--- OUTSIDE RECORDS SUMMARY | 2020-11-07 17:38 | CCD ---
Author Author [facility] Organization [facility] Address Unknown Phone Unavailable Care Team Providers Care Fingernail Former Name Role Phone Chester Dewitt MD Unavailable [...] Lyndaker, Chester Boyd MD Unavailable Unavailable Lyndaker, hCester Boyd MD Unavailable Unavailable Lyndaker, Chester Boyd MD Unavailable Unavailable Chichi, [phone] MD Mack JOHNSON Unavailable Unavailable Chichi, [id number] MD Mack JOHNSON Unavailable Unavailable Chichi, [id number] MD Mack JOHNSON Unavailable Unavailable Brijesh, A Luly GARMENT PARTS CUTTER MACHINE Unavailable Unavailable Brijesh, A Luly GARMENT PARTS CUTTER MACHINE Unavailable Unavailable Brijesh, A Luly GARMENT PARTS CUTTER MACHINE Unavailable Unavailable Brijesh, A Luly GARMENT PARTS CUTTER MACHINE Unavailable Unavailable Brijesh, A Luly GARMENT PARTS CUTTER MACHINE Unavailable Unavailable Brijesh, A Luly GARMENT PARTS CUTTER MACHINE Unavailable Unavailable Brijesh, A Luly GARMENT PARTS CUTTER MACHINE Unavailable Unavailable Brijesh, A Luly GARMENT PARTS CUTTER MACHINE Unavailable Unavailable Brijesh, A Luly GARMENT PARTS CUTTER MACHINE Unavailable Unavailable Brijesh, A Luly GARMENT PARTS CUTTER MACHINE Unavailable Unavailable Brijesh, A Luly GARMENT PARTS CUTTER MACHINE Unavailable Unavailable Brijesh, A Luly GARMENT PARTS CUTTER MACHINE Unavailable Unavailable Brijesh, A Luly GARMENT PARTS CUTTER MACHINE Unavailable Unavailable Brijesh, A Luly GARMENT PARTS CUTTER MACHINE Unavailable Unavailable Brijesh, A Luly GARMENT PARTS CUTTER MACHINE Unavailable Unavailable Brijesh, A Luly GARMENT PARTS CUTTER MACHINE Unavailable Unavailable Brijesh, A Luly GARMENT PARTS CUTTER MACHINE Unavailable Unavailable Brijesh, A Luly GARMENT PARTS CUTTER MACHINE Unavailable Unavailable Brijesh, A Luly GARMENT PARTS CUTTER MACHINE Unavailable Unavailable Brijesh, A Luly GARMENT PARTS CUTTER MACHINE Unavailable Unavailable Brijesh, A Luly GARMENT PARTS CUTTER MACHINE Unavailable Unavailable Brijseh, A Luly GARMENT PARTS CUTTER MACHINE Unavailable Unavailable Brijesh, A Luly GARMENT PARTS CUTTER MACHINE Unavailable Unavailable Brijesh, A Luly GARMENT PARTS CUTTER MACHINE Unavailable Unavailable Brijesh, A Luly GARMENT PARTS CUTTER MACHINE Unavailable Unavailable Brijesh, A Luly GARMENT PARTS CUTTER MACHINE Unavailable Unavailable Brijesh, A Luly GARMENT PARTS CUTTER MACHINE Unavailable Unavailable Brijesh, A Luly GARMENT PARTS CUTTER MACHINE Unavailable Unavailable Brijesh, A Luly GARMENT PARTS CUTTER MACHINE Unavailable Unavailable Brijesh, A Luly GARMENT PARTS CUTTER MACHINE Unavailable Unavailable Brijesh, A Luly GARMENT PARTS CUTTER MACHINE Unavailable Unavailable Brijesh, A Luly GARMENT PARTS CUTTER MACHINE Unavailable Unavailable Brijesh, A Luly GARMENT PARTS CUTTER MACHINE Unavailable Unavailable Brijesh, A Luly GARMENT PARTS CUTTER MACHINE Unavailable Unavailable Brijesh, A Luly GARMENT PARTS CUTTER MACHINE Unavailable Unavailable Brijesh, A Luly GARMENT PARTS CUTTER MACHINE Unavailable Unavailable Brijesh, A Luly GARMENT PARTS CUTTER MACHINE Unavailable Unavailable Brijesh, A Luly GARMENT PARTS CUTTER MACHINE Unavailable Unavailable Brijesh, A Luly GARMENT PARTS CUTTER MACHINE Unavailable Unavailable Brijesh, A Luly GARMENT PARTS CUTTER MACHINE Unavailable Unavailable Brijesh, A Luly GARMENT PARTS CUTTER MACHINE Unavailable Unavailable Brijesh, A Luly GARMENT PARTS CUTTER MACHINE Unavailable Unavailable Brijesh, A Luly GARMENT PARTS CUTTER MACHINE Unavailable Unavailable Brijesh, A Luly GARMENT PARTS CUTTER MACHINE Unavailable Unavailable Brijesh, A Luly GARMENT PARTS CUTTER MACHINE Unavailable Unavailable Brijesh, A Luly GARMENT PARTS CUTTER MACHINE Unavailable Unavailable Brijesh, A Luly GARMENT PARTS CUTTER MACHINE Unavailable Unavailable Brijesh, A Luly GARMENT PARTS CUTTER MACHINE Unavailable Unavailable Brijesh, A Luly GARMENT PARTS CUTTER MACHINE Unavailable Unavailable Brijesh, A Luly GARMENT PARTS CUTTER MACHINE Unavailable Unavailable Brijesh, A Luly GARMENT PARTS CUTTER MACHINE Unavailable Unavailable Brijesh, A Luly GARMENT PARTS CUTTER MACHINE Unavailable Unavailable Brijesh, A Luly GARMENT PARTS CUTTER MACHINE Unavailable Unavailable Brijesh, A Luly GARMENT PARTS CUTTER MACHINE Unavailable Unavailable Brijesh, A Luly GARMENT PARTS CUTTER MACHINE Unavailable Unavailable Brijesh, A Luly GARMENT PARTS CUTTER MACHINE Unavailable Unavailable Brijesh, A Luly GARMENT PARTS CUTTER MACHINE Unavailable Unavailable Brijesh, A Luly GARMENT PARTS CUTTER MACHINE Unavailable Unavailable Brijesh, A Luly GARMENT PARTS CUTTER MACHINE Unavailable Unavailable Brijesh, A Luly GARMENT PARTS CUTTER MACHINE Unavailable Unavailable Brijesh, A Luly GARMENT PARTS CUTTER MACHINE Unavailable Unavailable Brijesh, A Luly GARMENT PARTS CUTTER MACHINE Unavailable Unavailable Brijesh, A Luly GARMENT PARTS CUTTER MACHINE Unavailable Unavailable Brijesh, A Luly GARMENT PARTS CUTTER MACHINE Unavailable Unavailable Brijesh, A Luly GARMENT PARTS CUTTER MACHINE Unavailable Unavailable Brijesh, A Luly GARMENT PARTS CUTTER MACHINE Unavailable Unavailable Brijesh, A Luly GARMENT PARTS CUTTER MACHINE Unavailable Unavailable Brijesh, A Luly GARMENT PARTS CUTTER MACHINE Unavailable Unavailable Brijesh, A Luly GARMENT PARTS CUTTER MACHINE Unavailable Unavailable Brijesh, A Luly GARMENT PARTS CUTTER MACHINE Unavailable Unavailable Brijesh, A Luly GARMENT PARTS CUTTER MACHINE Unavailable Unavailable Brijesh, A Luly GARMENT PARTS CUTTER MACHINE Unavailable Unavailable Brijesh, A Luly GARMENT PARTS CUTTER MACHINE Unavailable Unavailable Brijesh, A Luly GARMENT PARTS CUTTER MACHINE Unavailable Unavailable Brijesh, A Luly GARMENT PARTS CUTTER MACHINE Unavailable Unavailable Brijesh, A Luly GARMENT PARTS CUTTER MACHINE Unavailable Unavailable Brijesh, A Luly GARMENT PARTS CUTTER MACHINE Unavailable Unavailable Brijesh, A Luly GARMENT PARTS CUTTER MACHINE Unavailable Unavailable Brijesh, A Luly GARMENT PARTS CUTTER MACHINE Unavailable Unavailable Brijesh, A Luly GARMENT PARTS CUTTER MACHINE Unavailable Unavailable Brijesh, A Luly GARMENT PARTS CUTTER MACHINE Unavailable Unavailable Brijesh, A Luly GARMENT PARTS CUTTER MACHINE Unavailable Unavailable Brijesh, A Luly GARMENT PARTS CUTTER MACHINE Unavailable Unavailable Brijesh, A Luly GARMENT PARTS CUTTER MACHINE Unavailable Unavailable Brijesh, A Luly GARMENT PARTS CUTTER MACHINE Unavailable Unavailable Brijesh, A Luly GARMENT PARTS CUTTER MACHINE Unavailable Unavailable Brijesh, A Luly GARMENT PARTS CUTTER MACHINE Unavailable Unavailable Brijesh, A Luly GARMENT PARTS CUTTER MACHINE Unavailable Unavailable Marjorie, Chau Unavailable Unavailable Marjorie, [...] is protected by Article 27-F of the [facility] Public Health law. If you continue you may have access to information: Regarding HIV / AIDS; Provided by facilities licensed or operated by the [facility] Office of Mental Health; or Provided by the [facility] Office for People With Developmental Disabilities. If such information is present, then the following [facility] mandated warning applies: This information has [...] law may result in a fine or alf sentence or both. A general authorization for the release of medical or other information is NOT sufficient authorization for further disc losure. Allergies and Adverse Reactions Type Description Substance Reaction Status Data Source(s ) Drug allergy No Known Drug Allergies No Known Drug Allergies [facility] Drug allergy Chantix Chantix Resolved [facility] ([facility]) Drug allergy Chantix 0.5 MG Oral Tablet Chantix 0.5MG Oral Tablet Resolved [facility] ([facility]) Drug allergy Chantix 0.5 MG Oral Tablet Chantix 0.5MG Oral Tablet Resolved [facility] ([facility]) Drug allergy Chantix 0.5 MG Oral Tablet Chantix 0.5MG Oral Tablet Active [facility]) Encounters Encounter Providers Location Date Indications Data Source(s ) Preadmit Attender: Chau Amador 07/16/2020 07:30:00 AM EST K64.8/HEMORRHOIDECTOMY [id number] [facility] K64.8/HEMORRHOIDECTOMY [id number] Outpatient Attender: KOBI RODRIGUEZ MDReferrer: Luly jimenez [employer]MENT [employer] CUTTER MACHINE 07/05/2020 09:16:00 AM EDT - 07/05/2020 10:12:00 AM EDT [facility] Outpatient Attender: [id number] Mack Cadet MD 05/16/2020 07:17:00 AM EDT - 05/16/2020 11:45:00 AM EDT [id number] [id number] Patient discharged. Outpatient Attender: [id number] Mack Cadet MD 05/14/2020 11 :22:00 AM EDT [facility] Outpatient Attender: [id number] Mack Cadet MDReferrer: Nayanavolodymyr Coley [facility] 05/14/2020 08:47:00 AM EDT - 05/14/2020 09:12:00 AM EDT [facility] Outpatient Attender: [id number] Mack Cadet MDReferrer: Rosenda Coley [facility] 04/12/2020 10:25:00 AM EDT - 04/12/2020 10:58:00 AM EDT [facility] Outpatient<td ID="encounterTypeDescripti onID2">followup</td><td>Luly Coley [facility]</td><td>[facility], [facility]</td><td>02/23/2020</td><td>9:49AM</td><td>10:23AM</td><td><content ID="encounterDiagnosisID2-0">Prediabetes</content>, <content ID="encounterDiagnosisID2-1">Hyperlipidemia</content>, <content ID="encounterDiagnosisID2-2">Impaired Fasting Glucose</content>, <content ID="encounterDiagnosisID2-3">Obesity</content></td> [facility] 02/23/2020 09:49:00 A M EDT - 02/23/2020 10:23:00 AM EDT Impaired Fasting GlucoseImpaired Fasting GlucoseObesityHyperlipidemiaPrediabetesObesityHyperlipidemiaPrediabetes [facility] ([facility]) Impaired Fasting Glucose Impaired Fasting Glucose Obesity Hyperlipidemia Prediabetes Obesity Hyperlipidemia Prediabetes Outpatient<td ID="encounterTypeDescripti onID0">problem list and pmhx,</td><td>Luly DE LOS SANTOSP</td><td></td><td>05/31/2020</td><td>02/23/2020 8:12AM</td><td>02/23/2020 11:59PM</td><td></td> Attender: Luly Coley [facility] 020 08:12:00 AM EDT - 02/23/2020 11:59:00 PM EDT [facility] [place] ([facility]) Outpatient<td ID="encounterTypeDescripti onID1">[Patient Encounter]</td><td>Oliver Dewitt MD</td><td></td><td>05/27/2020</td><td>02/23/2020 7:56AM</td><td>02/23/2020 11:59PM</td><td></td> Attender: Oliver Dewitt MD 0 07:56:00 AM EDT - 02/23/2020 11:59:00 PM EDT [facility] [place] ([facility]) Outpatient Attender: Luly JONES 02/16/2020 11:43 :00 AM EDT E55.9 [facility] E55.9 Outpatient<td ID="encounterTypeDescripti onID3">new patient</td><td>Luly Carballo Brijesh [facility]</td><td>[facility], P</td><td>02/16/2020</td><td>10:50AM</td><td>11:37AM</td><td><content ID="encounterDiagnosisID3-0">Obesity</content>, <content ID="encounterDiagnosisID3-1">Lumbago</content>, <content ID="encounterDiagnosisID3-2">Prediabetes</content>, <content ID="encounterDiagnosisID3-3">Hyperlipidemia</content>, <content ID="encounterDiagnosisID3-4">Arthritis</content>, <content ID="encounterDiagnosisID3-5">Arthralgia</content>, <content ID="encounterDiagnosisID3-6">Colon Screening</content>, <content ID="encounterDiagnosisID3-7">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</content></td> Attender: Luly Brijesh [facility], [facility] 02/16/2020 10:50:00 AM EDT - 02/16/2020 11:37:00 AM ED T 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Colon ScreeningArthritis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Colon ScreeningArthritis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Colon Screening ArthritisArthralgiaHyperlipidemiaPrediabetesLumbagoObesityArthralgiaHyperlipidem iaPrediabetesLumbagoObesityArthralgiaHyperlipidemiaPrediabetesLumbagoObesity [facility] ([facility]) Bph W/o Urinary Obstruction W/ Other Low [...] Outpatient<td ID="encounterTypeDescripti onID4">problem list and pmhx,</td><td>Luly Coley [facility]</td><td></td><td>01/27/2020</td><td>8:57AM</td><td>11:59PM</td><td></td> Attender: Luly DE LOS SANTOSP 01/27/2020 08:57:00 AM EDT - 01/27/2020 11:59:00 PM EDT [facility] [place] ([facility]) Medications Medication Brand Name Start Date Product [...] DAILY DOSE = ONE TABLET SOLD: 09/02/2020 [facility] Psyllium 14.2 MG/ML Oral Suspension Psyl lium Husk (Metamucil) 3.4 gram/5.4 gram powder Psyllium Husk (Metamucil) 3.4 gram/5.4 gram powder 10:00:24 AM EDT 1 TBS active [facility] Docusate Sodium 100 MG Oral Capsule Docusate Sodium (C olace) 100 mg capsule Docusate Sodium (Colace) 100 mg capsule 07/05/2020 10:00:06 AM EDT 10 0 MG active [facility] Omeprazole 20 MG Delayed Release Oral Ta blet Omeprazole Magnesium (Prilosec Otc) 20 mg Tablet,Delayed Release (Dr/Ec) Omeprazole Magnesium (Prilosec Otc) 20 m g Tablet,Delayed Release (Dr/Ec) 05/14/2020 02:52:36 PM EDT 20 MG active [facility] Omeprazole 20 MG Delayed Release Oral Ta blet Omeprazole Magnesium (Prilosec Otc) 20 mg Tablet,Delayed Release (Dr/Ec) Omeprazole Magnesium (Prilosec Otc) 20 m g Tablet,Delayed Release (Dr/Ec) 05/14/2020 02:52:36 PM EDT 20 MG active [facility] Chondroitin Sulfates 400 MG Oral Capsule Chondroitin S ulfate A Sodium Chondroitin Sulfate A Sodium 04/12/2020 10:40:38 AM EDT 400 MG active [facility] Chondroitin Sulfates 400 MG Oral Capsule Chondroitin S ulfate A Sodium Chondroitin Sulfate A Sodium 04/12/2020 10:40:38 AM EDT 400 MG completed [facility] Chondroitin Sulfates 400 MG Oral Capsule Chondroitin S ulfate A Sodium Chondroitin Sulfate A Sodium 04/12/2020 10:40:38 AM EDT 400 MG active [facility] Chondroitin Sulfates 400 MG Oral Capsule Chondroitin S ulfate A Sodium Chondroitin Sulfate A Sodium 04/12/2020 10:40:38 AM EDT 400 MG active [facility] l Multivitamin 04/12/2020 10:40:02 AM EDT 1 TAB comp leted [facility] Multivitamin 04/12/2020 10:40:02 AM EDT 1 TAB acti ve [facility] Multivitamin 04/12/2020 10:40:02 AM EDT 1 TAB acti ve [facility] Multivitamin 04/12/2020 10:40:02 AM EDT 1 TAB acti ve [facility] Graham-3 Fatty Acids (Fish Oil Concentrate) 1,000 mg capsule 04/12/2020 10:39:42 AM EDT 1000 MG completed [facility] Graham-3 Fatty Acids (Fish Oil Concentrate) 1,000 mg capsule 04/12/2020 10:39:42 AM EDT 1000 MG active [facility] Graham-3 Fatty Acids (Fish Oil Concentrate) 1,000 mg capsule 04/12/2020 10:39:42 AM EDT 1000 MG active [facility] Graham-3 Fatty Acids (Fish Oil Concentrate) 1,000 mg capsule 04/12/2020 10:39:42 AM EDT 1000 MG active [facility] EQL Fish Oil 1000 MG Oral Capsule EQL Fish Oil 1000 MG Oral Capsule 02/23/2020 12:00:00 AM EDT active EQL Fish Oil [facility] ([facility]) Chondroitin Sulfates 400 MG Oral Capsule Chondroitin Sulfate 400 MG Oral Capsule Chondroitin Sulfate 400 MG Oral Capsule 02/23/2020 12:00:00 AM EDT active chondroitin sulfates 400 MG Oral Capsule [facility] ([facility]) Daily Multivitamin Oral Capsule Daily Multivitamin Oral Caps ule 02/23/2020 12:00:00 AM EDT active Daily Mu ltivitamin [facility] ([facility]) Zolpidem tartrate 10 MG Oral Tablet Zolpidem Tartrate 10 MG Oral Tablet Zolpidem Tartrate 10 MG Oral Tablet 02/12/2020 12:00:00 AM EDT active zolpidem tartrate 10 MG Oral Tablet [facility] ([facility]) Insurance Providers Payer name Policy type / Coverage type Policy ID Covered republican ID Covered republican's relationship to parada Policy [place] Plan Information [place] PPO 302/307 [id number] SP [id number] [facility] [id number] SP [id number] BCBS of [facility] Other 0 Self 0 U [id number] Self [id number] EXCELLUS H [id number] Self [id number] BCBS of [facility] Other 0 Self 0 BCBS of [facility] Other 0 Self 0 BCBS of [facility] Other 0 Self 0 'S ADMINISTRATION [id number] SP [id number] SELF PAY ONLY [facility] [id number] SP [id number] ACTIVE DUTY [id number] SP [id number] Problems, Conditions, and Diagnoses Code Display Name Description Problem Type Effective Dates Data Source(s) 268.9 Vitamin D Deficiency Vitamin D Deficiency Problem 01/27/2020 12:00:00 AM EDT [facility] ([facility]) 278.00 Obesity Obesity Problem 01/27/2020 12:00:00 AM ED T [facility]) 724.2 Lumbago Lumbago Finding 01/27/2020 12:00:00 AM ED T [facility]) 719.49 Arthralgia Arthralgia Finding 01/27/2020 12:00:00 AM ED T [facility]) 780.52 Persistent Insomnia Persistent Insomnia Problem 0 01/27/2020 12:00:00 AM EDT [facility] ([facility]) 272.4 Hyperlipidemia Hyperlipidemia Problem 01/27/2020 12:00: 00 AM EDT [facility] ([facility]) 65396 Hemorrhoids Hemorrhoids Problem 01/27/2020 12:00:00 AM EDT [facility]) R73.03 Prediabetes Prediabetes Problem 01/27/2020 12:00:00 AM EDT [facility] [place] ([facility]) 268.9 Vitamin D Deficiency Vitamin D Deficiency Problem 01/27/2020 12:00:00 AM EDT [facility]) 278.00 Obesity Obesity Problem 01/27/2020 12:00:00 AM ED T [facility] ([facility]) 724.2 Lumbago Lumbago Finding 01/27/2020 12:00:00 AM ED T [facility]) 719.49 Arthralgia Arthralgia Finding 01/27/2020 12:00:00 AM ED T [facility] [place] ([facility]) 780.52 Persistent Insomnia Persistent Insomnia Problem 0 01/27/2020 12:00:00 AM EDT [facility] ([facility]) 272.4 Hyperlipidemia Hyperlipidemia Problem 01/27/2020 12:00: 00 AM EDT [facility] ([facility]) 92448 Hemorrhoids Hemorrhoids Problem 01/27/2020 [facility] R73.03 Prediabetes Prediabetes Problem 01/27/2020 12:00:00 AM EDT [facility] ([facility]) 268.9 Vitamin D Deficiency Vitamin D Deficiency Problem 01/27/2020 12:00:[facility] 78514 Obesity Obesity Problem 01/27/2020 12:00:00 AM ED T [facility] ([facility]) 724.2 Lumbago Lumbago Finding 01/27/2020 12:00:00 AM ED T [facility]) 719.49 Arthralgia Arthralgia Finding 01/27/2020 12:00:00 AM ED T [facility]) 780.52 Persistent Insomnia Persistent Insomnia Problem 0 01/27/2020 12:00:00 AM EDT [facility] ([facility]) 527613 Hyperlipidemia Hyperlipidemia Problem 01/27/2020 12:00: 00 AM EDT [facility] [place] ([facility]) 83311 Hemorrhoids Hemorrhoids Problem 01/27/2020 12:00:00 AM EDT [facility]) R73.03 Prediabetes Prediabetes Problem 01/27/2020 12:00:00 AM EDT [facility]) 268.9 Vitamin D Deficiency Vitamin D Deficiency Problem 01/27/2020 12:00:00 AM EDT [facility]) 43997 Obesity Obesity Problem 01/27/2020 12:00:00 AM ED T [facility]) 724.2 Lumbago Lumbago Finding 01/27/2020 12:00:00 AM ED T [facility]) 719.49 Arthralgia Arthralgia Finding 01/27/2020 12:00:00 AM ED T [facility]) 780.52 Persistent Insomnia Persistent Insomnia Problem 0 01/27/2020 12:00:00 AM EDT [facility] ([facility]) 781438 Hyperlipidemia Hyperlipidemia Problem 01/27/2020 12:00: 00 AM EDT [facility]) 92665 Hemorrhoids Hemorrhoids Problem 01/27/2020 12:00:00 AM [facility]) R73.03 Prediabetes Prediabetes Problem 01/27/2020 12:00:00 AM [facility]) Surgeries/Procedures Procedure Description Date Indications Data Source(s) Nucleic acid assay (procedure) 05/14/2020 12:00:00 AM [facility] Nucleic acid assay (procedure) 05/14/2020 12:00:00 AM [facility] TSH- Thyroid Stimulating Hormone TSH- Thyroid Stimulating Ho rmone 02/16/2020 12:00:00 AM [facility] ([facility]) Free T4- Free Thryoxine Free T4- Free Thryoxine 02/16/2020 12:00: 00 AM [facility] ([facility]) HgbA1C HgbA1C 02/16/2020 12:00:00 AM [facility] CMP-Complete Metabolic Profile CMP-Complete Metabolic Profil e 02/16/2020 12:00:00 AM [facility] ([facility]) Fasting Lipid Profile Fasting Lipid Profile 02/16/2020 12:00:00 AM [facility] ([facility]) Venipuncture (routine) Venipuncture (routine) 02/16/2020 12:00:00 A M [facility] ([facility]) Results ID Date Data Source [id number] 07/05/2020 09:17:00 AM [facility] Name: Susanne Roger : 1970 Age: 49 MR#: [id number] Admit Date: 07/05/20 Provider: Kobi Rodriguez MD Room #: Consulting Provider: Dictation Date: [...] Method room air Intake Visit Reasons: Hemorrhoids Hammersmith Helper Required: No Accompanied by: Is patient in pain?: No Allergies No Known Drug Allergies Allergy (Verified 05/16/20 07:38) Coronavirus Screening Screening Have you traveled outside of [facility] or [facility] in the last 14 days.: [...] nourished Orientation: alert, awake and oriented x3 [facility] Head: normal to inspection, normocephalic, atraumatic and [...] rce(s) Supporting Document(s) ID Date Data Source [id number] 05/16/2020 10:42:00 AM EDT [facility] Name: Susanne Roger : 1970 Age: 49 MR#: [id number] Admit Date: 05/16/20 Provider: Mack Cadet MD [...] fair. The cecum was clearly identified by karuk's foot and appendiceal orifice. During the passage [...] rce(s) Supporting Document(s) ID Date Data Source [id number] 05/23/2020 07:08:00 AM EDT [facility] PATH SPEC #:: [id number] Name Value Range Interpretation Code Description Data [place] rce(s) Supporting Document(s) Pathology studies (set) See scanned report [facility] ID Date Data Source [id number] 05/14/2020 12:52:00 PM EDT [facility] PRE OPTHIS RP PANEL TESTS FOR SA RS-CoV-2,(COVID-19)FilmArray Respiratory Panel is a Multiplexed NAAT-PCR testNORMAL VALUE FOR ALL 20 PATHOGENS IS "NOT DETECTED".The [facility] RP panel detects Influenza A H1,H3 [id number] H1 viruses,Influenza B virus, Respiratory syncytialvirus, Human [...] rce(s) Supporting Document(s) ID Date Data Source [id number] 05/14/2020 08:49:00 AM EDT [facility] Name: SUSANNE ROGER : 1970 Age: 49 MR#: [id number] Admit Date: 05/14/20 Provider: Mack Cadet MD [...] P Nurse Note: preop update colonoscopy 05/16/2020 Hammersmith Helper Required: No Is patient in pain?: No Allergies No Known Drug Allergies Allergy (Unverified 05/14/20 09:35) Coronavirus Screening Screening Have you traveled outside of [facility] or [facility] in the last 14 days.: [...] nourished Orientation: alert, awake and oriented x3 [facility] Head: normal to inspection, normocephalic, atraumatic and [...] rce(s) Supporting Document(s) ID Date Data Source [id number] 04/12/2020 10:31:00 AM EDT [facility] Name: Susanne Roger : 1970 Age: 49 MR#: [id number] Admit Date: 04/12/20 Provider: Mack Cadet MD [...] Nurse Note: Patient has issues with hemorrhoids [id number]. He has never had a colonoscopy. Hammersmith Helper Required: No Accompanied by: Self / Same as Patient Is patient in pain?: No Allergies No Known Drug Allergies Allergy (Unverified 04/12/20 11:01) Coronavirus Screening Screening Have you traveled outside of [facility] or [facility] in the last 14 days.: [...] nourished Orientation: alert, awake and oriented x3 [facility] Head: normal to inspection, normocephalic, atraumatic and [...] Hemorrhage of anus and rectum SNOMED Code(s): 92775826 Category: Medical Plan - Mack Cadet: 49 [...] <Electronically signed by Mack Cadet > Mack Caedt 04/12/20 1108 Mack Cadet SIGNATURE DA Report Cosigners: D: JULIÁN 04/12/20 1031 T: CHUCKY 04/12/20 1031 CC: Name Value Range Interpretation Code Description Data [place] rce(s) Supporting Document(s) ID Date Data Source [id number] 02/17/2020 08:08:00 AM EDT [facility] Name Value Range Interpretation Code Description Data [place] rce(s) Supporting Document(s) Insulin 19.7 u[iU]/mL 2.6-24.9 [facility] Performed at: RN - [facility] [place] [address] [id number] Director: Tami Nettles MD, Phone: [phone] ID Date Data Source [id number] 02/16/2020 03:38[facility] repeat or follow-up test?: INIT IAL Name Value Range Interpretation Code Description Data [place] rce(s) Supporting Document(s) Prostate specific Ag [Mass/volume] in Serum or Plasma 0.91 ng/mL 0.0- 4.0 N [facility] THIS ASSAY WAS PERFORMED [facility] [place] CHEMILUMINOMETRIC TECHNOLOGY.THE PSA IS NOT AN ABSOLUTE TEST FOR MALIGNANCY. IT SHOULD BEUSED IN CONJUNCTION WITH INFORMATION AVAILABLE FROM THECLINICAL EVALUATION AND OTHER DIAGNOSTIC PROCEDURES.VALUES OBTAINED WITH DIFFERENT ASSAY METHODS CANNOT BE USEDINTERCHANGEABLY. ID Date Data Source [id number] 02/17/2020 08:08:00 AM EDT [facility] Initial, repeat or follow-up test?: INIT IAL Name Value Range Interpretation Code Description Data [place] rce(s) Supporting Document(s) 25-Hydroxyvitamin D2+25-Hydroxyvitamin D3 [Mass/volume ] in Serum or Plasma 37.9 ng/mL 30.0-100.0 [facility] Vitamin D deficiency has been defined by the [place] of[employer] and an Endocrine Society practice guideline as alevel of serum 25-OH vitamin D less than 20 ng/mL (1,2).The Endocrine Society went on to further define vitamin Dinsufficiency as a level between 21 and 29 ng/mL (2).1. IOM ([place] of [employer]). 2010. Dietary reference intakes for calcium and D. [place]: The National Academies Press.2. Carmelina MF, Ankur NC, Brooks DÍAZ, et al. Evaluation, treatment, and prevention of vitamin D deficiency: an Endocrine Society clinical practice guideline. JCEM. 2010; 96(7):1911- 30.Performed at: RN - [facility] [address] [id number] Director: Tami Nettles MD, Phone: [phone] ID Date Data Source [id number] 02/16/2020 11:43:[facility] Name Value Range Interpretation Code Description Data [place] rce(s) Supporting Document(s) TSH 1.548 uIu/mL TSH [facility] ([facility]) Note: Responsible Observer: KM ID Date Data Source [id number] 02/16/2020 11:43:00 AM EDT [facility] ([facility]) Name Value Range Interpretation Code Description Data [place] rce(s) Supporting Document(s) FREE T4 0.83 ng/dl FREE T4 [facility] ([facility]) Note: Responsible Observer: KM ID Date Data Source [id number] 02/16/2020 11:43:00 AM EDT [facility] ([facility]) Name Value Range Interpretation Code Description Data [place] rce(s) Supporting Document(s) Hemoglobin A1c/Hemoglobin.total in Blood 5.8 na Hgba1c [facility] ([facility]) Note: Responsible Observer: KM ID Date Data Source [id number] 02/16/2020 11:43:00 AM EDT [facility] ([facility]) Name Value Range Interpretation Code Description Data [place] rce(s) Supporting Document(s) Triglycerides 134 mg/dl Triglycerides [facility] ([facility]) Note: Responsible Observer: KM Cholesterol [Moles/volume] in Pericardial fluid 244 mg/dl Above high normal Cholesterol [facility] ([facility]) Note: Responsible Observer: KM Dir. LDL 165 mg/dl Above high normal Dir. LDL [facility] ([facility]) Note: Responsible Observer: KM HDL 44 mg/dl HDL [facility] ([facility]) Note: Responsible Observer: KM ID Date Data Source [id number] 02/16/2020 11:43:00 AM EDT [facility] ([facility]) Name Value Range Interpretation Code Description Data [place] rce(s) Supporting Document(s) Albumin [Mass/volume] in Blood by Bromocresol purple ( BCP) dye binding method 4.6 g/dl Albumin [facility] ([facility]) Note: Responsible Observer: KM AST 15 IU/L AST [facility] ([facility]) Note: Responsible Observer: KM Alkaline Phos 94 IU/L Alkaline Phos [facility] ([facility]) Note: Responsible Observer: KM Urea nitrogen [Moles/volume] in Blood 15 mg/dl Urea Nitrogen [facility] ([facility]) Note: Responsible Observer: KM ALT 23 IU/L ALT [facility] ([facility]) Note: Responsible Observer: KM Chloride [Moles/volume] in Serum, Plasma or Blood 105 mmol/L Chloride [facility] ([facility]) Note: Responsible Observer: KM Calcium [Moles/volume] in Urine collected for unspecified durati on 8.7 mg/dl Calcium [facility] ([facility]) Note: Responsible Observer: KM CO2 23 mmol/L CO2 [facility] ([facility]) Note: Responsible Observer: KM EGFR - AfricanAm > 60 N/A EGFR - AfricanAm [facility] Note: Responsible Observer: KM EGFR - Non AF AM > 60 N/A EGFR - Non AF [facility] Note: Responsible Observer: KM Creatinine [Moles/volume] in Vitreous fluid 1.1 mg/dl Creatinine [facility] ([facility]) Note: Responsible Observer: KM Glucose [Mass/volume] in Urine collected for unspecified duratio n 114 mg/dl Above high normal Glucose [facility] ([facility]) Note: Responsible Observer: KM Potassium [Mass/volume] in Blood 3.8 mmol/L Pot assium [facility] ([facility]) Note: Responsible Observer: KM Sodium [Moles/volume] in Serum, Plasma or Blood 138 mmol/L Sodium [facility] ([facility]) Note: Responsible Observer: KM Total Protein 7.1 g/dl Total Protein [facility] ([facility]) Note: Responsible Observer: KM Total Bilirubin 0.5 mg/dl [facility] Bilirubin [facility] Note: Responsible Observer: KM ID Date Data Source [id number] 12/29/2019 10:30:00 AM EDT [facility] Name Value Range Interpretation Code Description Data [place] rce(s) Supporting Document(s) SARS CORONAVIRUS 2 RNA [facility] This lab was ordered by [facility] and reported by [facility]. Procedure Social History Code Duration Value Status Description Data Source(s ) 07/05/2020 10:02:00 AM EDT Jun 2016 completed Jun 2016 [facility] 07/05/2020 10:02:00 AM EDT No completed No [facility] 05/14/2020 02:55:00 PM EDT Former smoker completed Former smoker [facility] Smoking 05/14/2020 02:55:00 PM EDT Former smoker completed Former smoker [facility] 05/14/2020 02:55:00 PM EDT No completed No [facility] 05/14/2020 02:55:00 PM EDT Former smoker completed Former smoker [facility] Smoking 05/14/2020 02:55:00 PM EDT Former smoker completed Former smoker [facility] Smoking 04/12/2020 10:35:00 AM EDT Never smoker completed Never s moker [facility] Smoking 04/12/2020 10:35:00 AM EDT Never smoker completed Never s ksker [facility] 03/25/2020 08:35:00 AM EDT Jun 2016 completed Jun 2016 [facility] 03/25/2020 08:35:00 AM EDT Jun 2016 completed Jun 2016 [facility] 03/25/2020 08:35:00 AM EDT Jun 2016 completed Jun 2016 [facility] Vital Signs ID Date Data Source UNK Name Value Range Interpretation Code Description Data Source(s) Body surface area Derived from formula 2.30 m2 2.30 m2 [facility] ([facility]) Body mass index (BMI) [Ratio] 37.0 kg/m2 37.0 k g/m2 [facility] ([facility]) Body weight 254 [lb_av] 254 [lb_av] [facility] ([facility]) Body height 69.5 [in_i] 69.5 [in_i] [facility] ([facility]) Respiratory rate 18 /min 18 /min [facility] ([facility]) Heart rate 72 /min 72 /min [facility] ([facility]) Diastolic blood pressure 72 mm[Hg] 72 mm[Hg] [facility] ([facility]) Systolic blood pressure 120 mm[Hg] 120 mm[Hg] [facility] ([facility]) Body surface area Derived from formula 2.30 m2 2.30 m2 [facility] ([facility]) Body mass index (BMI) [Ratio] 37.0 kg/m2 37.0 k g/m2 [facility]) Body weight 254 [lb_av] 254 [lb_av] [facility] ([facility]) Body height 69.5 [in_i] 69.5 [in_i] [facility] ([facility]) Respiratory rate 18 /min 18 /min [facility] ([facility]) Heart rate 78 /min 78 /min [facility] ([facility]) Diastolic blood pressure 84 mm[Hg] 84 mm[Hg] [facility] ([facility]) Systolic blood pressure 120 mm[Hg] 120 mm[Hg] [facility] BAUTIST[facility] ([facility])
[2020-11-07] MEDS ORDERED: RALTEGRAVIR 400 MG TAB (ISENTRESS) PO ONE (18:00)
[2020-11-07] MEDS ORDERED: TRUVADA 200MG/300MG TABLET PO ONE (18:00)
[2020-11-07 18:01] VITALS: BP 135/69
[2020-11-07 18:06] LABS: BASO % 0.5 % (0.0-1.0); EOS # 0.1 10^3/uL (0.0-0.5); HEMATOCRIT 44.8 % (42.0-52.0); HEMOGLOBIN 14.5 g/dl (13.5-17.5); LYMPH # 1.4 10^3/uL (1.5-5.0); LYMPH % 22.6 % (24.0-44.0); MEAN CORPUSCULAR HEMOGLOBIN 30.9 pg (27.0-33.0); MEAN CORPUSCULAR HGB CONC 32.4 g/dl (32.0-36.5); MEAN CORPUSCULAR VOLUME 95.5 fl (80.0-96.0); MONO # 0.5 10^3/uL (0.0-0.8); MONO % 7.7 % (2.0-8.0); NEUTROPHILS # 4.1 10^3/uL (1.5-8.5); NEUTROPHILS % 67.9 % (36.0-66.0); PLATELET COUNT, AUTOMATED 246 10^3/uL (150-450); RED BLOOD COUNT 4.69 10^6/uL (4.30-6.10); WHITE BLOOD COUNT 6.1 10^3/uL (4.0-10.0)
[2020-11-07 18:27] LABS: ALBUMIN 4.2 GM/DL (3.2-5.2); ALT/SGPT 33 U/L (12-78); BILIRUBIN,TOTAL 0.3 MG/DL (0.2-1.0); BLOOD UREA NITROGEN 13 MG/DL (7-18); CALCIUM LEVEL 8.9 MG/DL (8.5-10.1); CARBON DIOXIDE LEVEL 28 MEQ/L (21-32); CHLORIDE LEVEL 109 MEQ/L (98-107); GLOMERULAR FILTRATION RATE > 60.0 (>56); GLUCOSE, FASTING 101 MG/DL (70-100); POTASSIUM SERUM 3.7 MEQ/L (3.5-5.1); SODIUM LEVEL 142 MEQ/L (136-145); TOTAL PROTEIN 7.5 GM/DL (6.4-8.2)
[2020-11-07 18:36] LABS: HEPATITIS B SURFACE ANTIBODY POSITIVE (POSITIVE)
[2020-11-07 18:47] LABS: HEPATITIS B SURFACE ANTIGEN NEGATIVE (NEGATIVE)
[2020-11-07 19:15] LABS: HEPATITIS C VIRUS ABY INDEX < 0.0 INDEX (<0.8)
[2020-11-07 19:16] LABS: HIV 1&2 SCREEN CENTAUR NEGATIVE (NEGATIVE)
== END 2020-11-07 18:29 | disposition home or self-care (01) ==
LOC: M ED 16:52
DX: Z77.21 Contact with and (suspected) exposure to potentially hazardous body fluids (principal); W46.1XXA Contact with contaminated hypodermic needle, initial encounter; Y92.410 Unspecified street and highway as the place of occurrence of the external cause; Y93.89 Activity, other specified; Y99.0 Civilian activity done for income or pay

== ENCOUNTER 2021-02-12 14:28 | Emergency (ER) | payer BC, OTHER ==
[~2021-02-12] VITALS: Ht 175.3 cm; Wt 110.5 kg
[~2021-02-12 14:28] MED LIST changes: +EMTR1TAB16 PO; +RALT40TA PO; -RALTEGRAVIR 400 MG TAB (ISENTRESS) PO SCH; -TRUVADA 200MG/300MG TABLET PO SCH
[2021-02-12 14:29] VITALS: BP 168/74
--- NOTE | 2021-02-12 15:04 | REP ---
INDICATION: injury to thumb from PENITENTIARY COMPARISON: None. TECHNIQUE: AP, lateral, bilateral oblique views right 1st digit. FINDINGS: No definite acute fractures appreciated although subtle injury at the head of the 1st metacarpal bone cannot definitively be excluded and should be correlated with point of tenderness. IMPRESSION: Very subtle injury at the head of the 1st metacarpal bone cannot be excluded and requires clinical correlation. <Electronically signed by Timmy Calvo > 02/12/21 1500
[2021-02-12] MEDS ORDERED: NORCO, ANEXSIA 5/325MG TABLET (HYDROcodone/ACETAMINOPHEN) PO ONE (15:40)
[2021-02-12] MEDS ORDERED: HYDR-3713 PO (15:42)
== END 2021-02-12 15:58 | disposition home or self-care (01) ==
LOC: M ED 14:28
DX: S62.201A Unspecified fracture of first metacarpal bone, right hand, initial encounter for closed fracture (principal); V23.9XXA Unspecified motorcycle rider injured in collision with car, pick-up truck or van in traffic accident, initial encounter; Y92.410 Unspecified street and highway as the place of occurrence of the external cause; Y93.9 Activity, unspecified; Y99.9 Unspecified external cause status; Z79.899 Other long term (current) drug therapy